=== PATIENT | male | born 1955 | race African-American/Black ===

== ENCOUNTER 2019-06-05 22:28 | Emergency (ER) | payer MEDICAID ==
[~2019-06-05] VITALS: Ht 175.3 cm; Wt 77.1 kg
[~2019-06-05 22:28] MED LIST: ROBAXIN500 MG PO; UNOBMED; ZITHROMAX250 MG ORAL
--- NOTE | 2019-06-05 22:32 | NUR ---
ED Nurse Note: Walk-in patient with complaints of dizziness, acute onset about 45 minutes ago. Patient reports feeling different, like a puppet. Patient is rambling and had unsteady gait upon arrival and help in to bed. panel monitor placed on patient. Blood drawn and blood specimen collected and sent to lab. Patient has pending void for urine sample. Will continue to monitor for specimen collection and lab results. IV N/S 1L hung and running, right AC 20G, patent and intact.
[2019-06-05 22:36] VITALS: BP 167/90
[2019-06-05 23:00] VITALS: BP 157/79
[2019-06-05 23:12] LABS: BASOPHILS % (AUTO) 0.7 % (0.0-2.0); EOSINOPHILS % (AUTO) 2.6 % (0.0-3.0); HEMATOCRIT 38.4 % (42.0-52.0); HEMOGLOBIN 13.6 G/DL (14.2-18.0); LYMPHOCYTES % (AUTO) 24.7 % (20.0-45.0); MEAN CORPUSCULAR VOLUME 89 FL (80-99); MONOCYTES % (AUTO) 7.9 % (1.0-10.0); NEUTROPHILS % (AUTO) 64.1 % (45.0-75.0); PLATELET COUNT 292 K/UL (150-450); RED CELL DISTRIBUTION WIDTH 11.5 % (11.6-14.8); WHITE BLOOD COUNT 10.3 K/UL (4.8-10.8)
[2019-06-05 23:22] LABS: ANION GAP 11 mmol/L (5-15); BLOOD UREA NITROGEN 29 mg/dL (7-18); CALCIUM 9.6 MG/DL (8.5-10.1); CARBON DIOXIDE 29 MMOL/L (21-32); CHLORIDE 107 MMOL/L (98-107); CREATININE 1.5 MG/DL (0.55-1.30); SODIUM 147 MMOL/L (136-145)
[2019-06-05 23:27] LABS: ALANINE AMINOTRANSFERASE 31 U/L (12-78); ALBUMIN 3.9 G/DL (3.4-5.0); ALBUMIN/GLOBULIN RATIO 0.9 (1.0-2.7); ALKALINE PHOSPHATASE 111 U/L (46-116); ASPARTATE AMINO TRANSFERASE 20 U/L (15-37); BILIRUBIN,TOTAL 0.4 MG/DL (0.2-1.0)
[2019-06-05 23:30] VITALS: BP 151/75
[2019-06-05 23:46] LABS: APPEARANCE,URINE CLEAR; BILIRUBIN, URINE NEGATIVE (NEGATIVE); COLOR,URINE PALE YELLOW; GLUCOSE, URINE (UA) NEGATIVE (NEGATIVE); KETONES,URINE NEGATIVE (NEGATIVE); LEUKOCYTE ESTERASE ,URINE NEGATIVE (NEGATIVE); NITRITE,URINE NEGATIVE (NEGATIVE); PH,URINE 5 (4.5-8.0); UROBILINOGEN,URINE NORMAL MG/DL (0.0-1.0)
[2019-06-06] VITALS: BP 134/76
--- NOTE | 2019-06-06 00:01 | Emergency Room Report ---
History of Present Illness General Chief Complaint: Generalized Weakness Source: Patient Present Illness HPI This 64-year-old male presents the ED for evaluation. Complaining of dizziness and feeling weak. Symptoms started tonight around 7 PM. Denies LOC. Denies chest pain or shortness of breath. Denies slurred speech or facial droop. Denies arm or leg weakness for the last several weeks he has had a runny nose and congestion. Denies fevers or chills. No other aggravating relieving factors. Denies any other associated symptoms Allergies: Coded Allergies: TRAMADOL (Verified Adverse Reaction, Severe, vomiting, 09/12/12) COVID-19 Screening Contact w/high risk pt: No Recent Travel to affected area: No Experienced COVID-19 symptoms?: No Patient History Past Medical History: DM, HTN, COPD Past Surgical History: none Pertinent Family History: none Social History: Denies: smoking, alcohol use, drug use Immunizations: UTD Reviewed Nursing Documentation: PMH: Agreed; PSxH: Agreed Nursing Documentation-PMH Hx Hypertension: Yes Hx Pacemaker: No Hx Asthma: No Hx COPD: Yes Hx Diabetes: Yes Hx Gastrointestinal Problems: Yes - constipation Hx Dialysis: No Hx Neurological Problems: No Hx Cerebrovascular Accident: No Review of Systems All Other Systems: negative except mentioned in HPI Physical Exam Vital Signs Date Time Temp Pulse Resp B/P (MAP) Pulse Ox O2 Delivery O2 Flow Rate FiO2 06/05/19 22:32 98.1 88 18 167/90 (115) 95 Room Air Sp02 EP Interpretation: reviewed, normal General Appearance: no apparent distress, alert, GCS 15, non-toxic Head: normocephalic, atraumatic Eyes: bilateral eye normal inspection, bilateral eye PERRL ENT: hearing grossly normal, normal pharynx, no angioedema, normal voice Neck: full range of motion, supple/symm/no masses Respiratory: chest non-tender, lungs clear, normal breath sounds, speaking full sentences Cardiovascular #1: regular rate, rhythm, no edema Cardiovascular #2: 2+ carotid (R), 2+ carotid (L), 2+ radial (R), 2+ radial (L) , 2+ dorsalis pedis (R), 2+ dorsalis pedis (L) Gastrointestinal: normal bowel sounds, non tender, soft, non-distended, no guarding, no rebound Rectal: deferred Genitourinary: normal inspection, no CVA tenderness Musculoskeletal: back normal, normal range of motion, gait/station normal, non- tender Neurologic: alert, motor strength/tone normal, 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 Differential diagnoses include: dehydration, arrythmia, EtOH, drug abuse Clinical course patient placed on stretcher. On electric range preparer. After initial history and physical ordered labs, IV fluids, EKG, CXR Labs reviewed- Na 147, Cr 1.5, no leukocytosis, hemoglobin/hematocrit stable, tox panel + for multilple substances EKG - NSR, no acute ischemic changes interpreted by me CXR - no acute process Patient allowed to rest. Observed on electric range preparer with stable vitals. Is more alert and oriented. Discussed findings with patient. Will discharge home. Safe for discharge for close outpatient follow-up i. I feel this is a highly complex case requiring extensive working including EKG/Rhythm strip, Xray/CT/US, Blood/urine lab work, repeat exams while in ED, and administration of strong opiates/narcotics for pain control, admission to hospital or close patient follow up. Diagnosis -episode of generalized weakness, substance abuse Stable and discharged to home. Followup with PMD. Return to ED if symptoms recur or worsen Labs Test 06/05/19 22:54 06/05/19 23:25 White Blood Count 10.3 K/UL (4.8-10.8) Red Blood Count 4.30 M/UL (4.70-6.10) Hemoglobin 13.6 G/DL (14.2-18.0) Hematocrit 38.4 % (42.0-52.0) Mean Corpuscular Volume 89 FL (80-99) Mean Corpuscular Hemoglobin 31.7 PG (27.0-31.0) Mean Corpuscular Hemoglobin Concent 35.5 G/DL (32.0-36.0) Red Cell Distribution Width 11.5 % (11.6-14.8) Platelet Count 292 K/UL (150-450) Mean Platelet Volume 7.0 FL (6.5-10.1) Neutrophils (%) (Auto) 64.1 % (45.0-75.0) Lymphocytes (%) (Auto) 24.7 % (20.0-45.0) Monocytes (%) (Auto) 7.9 % (1.0-10.0) Eosinophils (%) (Auto) 2.6 % (0.0-3.0) Basophils (%) (Auto) 0.7 % (0.0-2.0) Sodium Level 147 MMOL/L (136-145) Potassium Level 4.0 MMOL/L (3.5-5.1) Chloride Level 107 MMOL/L (98-107) Carbon Dioxide Level 29 MMOL/L (21-32) Anion Gap 11 mmol/L (5-15) Blood Urea Nitrogen 29 mg/dL (7-18) Creatinine 1.5 MG/DL (0.55-1.30) Estimat Glomerular Filtration Rate 57.4 mL/min (>60) Glucose Level 85 MG/DL (74-106) Calcium Level 9.6 MG/DL (8.5-10.1) Total Bilirubin 0.4 MG/DL (0.2-1.0) Aspartate Amino Transf (AST/SGOT) 20 U/L (15-37) Alanine Aminotransferase (ALT/SGPT) 31 U/L (12-78) Alkaline Phosphatase 111 U/L (46-116) Troponin I 0.002 ng/mL (0.000-0.056) Total Protein 8.2 G/DL (6.4-8.2) Albumin 3.9 G/DL (3.4-5.0) Globulin 4.3 g/dL Albumin/Globulin Ratio 0.9 (1.0-2.7) Serum Alcohol < 3 mg/dL Urine Color Pale yellow Urine Appearance Clear Urine pH 5 (4.5-8.0) Urine Specific [place] 1.020 (1.005-1.035) Urine Protein Negative (NEGATIVE) Urine Glucose (UA) Negative (NEGATIVE) Urine Ketones Negative (NEGATIVE) Urine Blood Negative (NEGATIVE) Urine Nitrite Negative (NEGATIVE) Urine Bilirubin Negative (NEGATIVE) Urine Urobilinogen Normal MG/DL (0.0-1.0) Urine Leukocyte Esterase Negative (NEGATIVE) Urine Opiates Screen Negative (NEGATIVE) Urine Barbiturates Screen Negative (NEGATIVE) Phencyclidine (PCP) Screen Positive (NEGATIVE) Urine Amphetamines Screen Negative (NEGATIVE) Urine Benzodiazepines Screen Negative (NEGATIVE) Urine Cocaine Screen Negative (NEGATIVE) Urine Marijuana (THC) Screen Positive (NEGATIVE) EKG Diagnostic Results Rate: normal Rhythm: NSR ST Segments: other ASA given to the pt in ED: No Rhythm Strip Diag. Results EP Interpretation: yes Rhythm: NSR, no PVC's, no ectopy Chest X-Ray Diagnostic Results Chest X-Ray Diagnostic Results : Chest X-Ray Ordered: Yes # of Views/Limited/Complete: 1 View Indication: Other EP Interpretation: Yes Interpretation: no consolidation, no effusion, no pneumothorax, no acute cardiopulmonary disease Impression: No acute disease Electronically Signed by: Electronically signed by Perry Diaz MD Last Vital Signs Date Time Temp Pulse Resp B/P (MAP) Pulse Ox O2 Delivery O2 Flow Rate FiO2 06/05/19 22:36 98.1 88 18 167/90 95 Room Air Status: improved Disposition: HOME, SELF-CARE Condition: Stable Referrals: NON PHYSICIAN (PCP) Perry Diaz MD Jun 06, 2019 00:01
--- NOTE | 2019-06-06 00:03 | Diagnostic Imaging Report ---
EXAM: XR Chest, 1 View CLINICAL HISTORY: COUGH TECHNIQUE: Frontal view of the chest. COMPARISON: 09/22/13 FINDINGS: Borderline to mild cardiomegaly. The lungs are mildly hypoinflated with vascular crowding. Negative for focal parenchymal consolidation, pneumothorax or fluid collections. Left lateral mid thorax rib deformities likely chronic.
[2019-06-06 00:10] LABS: PROTEIN,URINE NEGATIVE (NEGATIVE)
[2019-06-06 00:54] VITALS: BP 134/76
--- NOTE | 2019-06-06 00:54 | NUR ---
ER DISCHARGE NOTE: Patient is cleared to be discharged per ERMD, pt is aox4, on room air, with stable vital signs. patient was given dc and prescription instructions, patient was able to verbalize understanding, patient id band and iv site removed without complications. patient is able to ambulate with unsteady gait and minial assist. patient took all belongings and is accompanied by a family member to his place of residence.
== END 2019-06-06 00:56 | disposition home or self-care (01) ==
LOC: EMR 23:08
DX: R53.1 Weakness (principal); F19.10 Other psychoactive substance abuse, uncomplicated; Z88.8 Allergy status to other drugs, medicaments and biological substances; E11.9 Type 2 diabetes mellitus without complications; I10 Essential (primary) hypertension; J44.9 Chronic obstructive pulmonary disease, unspecified
CPT/HCPCS: 36415; 71045; 80053; 80307; 81003; 84484; 85025; 93005; 96360; G0480; J7030; Z7502; 99284

== ENCOUNTER 2019-07-27 16:00 | Emergency (ER) | payer MEDICAID ==
[~2019-07-27] VITALS: Ht 172.7 cm; Wt 79.4 kg
--- NOTE | 2019-07-27 16:35 | Emergency Room Report ---
History of Present Illness General Chief Complaint: hip pain Present Illness HPI Is a 64-year-old male who presents after increased right-sided hip pain. Reports having a longstanding prior problem with the right hip. No recent trauma. Increased clicking with ambulation. Denies any other locations of pain at this time. Patient denies any fever. Prior history of diabetes type 2. States that he has neuropathy. Allergies: Coded Allergies: TRAMADOL (Verified Adverse Reaction, Severe, vomiting, 09/12/12) COVID-19 Screening Contact w/high risk pt: No Recent Travel to affected area: No Experienced COVID-19 symptoms?: No Patient History Reviewed Nursing Documentation: PMH: Agreed; PSxH: Agreed Nursing Documentation-PMH Hx Hypertension: Yes Hx Pacemaker: No Hx Asthma: No Hx COPD: Yes Hx Diabetes: Yes Hx Gastrointestinal Problems: Yes - constipation Hx Dialysis: No Hx Neurological Problems: No Hx Cerebrovascular Accident: No Review of Systems All Other Systems: negative except mentioned in HPI Physical Exam General Appearance: well appearing, no apparent distress, alert, GCS 15 Head: normocephalic, atraumatic ENT: hearing grossly normal, normal voice Neck: full range of motion, supple Respiratory: lungs clear, no respiratory distress, speaking full sentences Cardiovascular #1: normal inspection, regular rate, rhythm Gastrointestinal: normal inspection, non tender Musculoskeletal: no calf tenderness Neurologic: alert, motor strength/tone normal, 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 Differential diagnosis include was not limited to arthritis, avascular necrosis, fracture, among others. X-ray imaging was ordered to patient's complaint of pain. Patient's problem does appear to be somewhat chronic and this does appear to be arthritic related. Patient states he is taken Tylenol with codeine for this problem in the past. Does not appear to require a narcotic pain medications. He does appear to be able to ambulate with a cane. He was advised to follow-up with primary care physician for recheck. Is advised to return if worse. Status: improved Disposition: HOME, SELF-CARE Condition: Stable Scripts Gabapentin* (NEURONTIN*) 400 Mg Capsule 400 MG ORAL THREE TIMES A DAY, #15 CAP 0 Refills Prov: Saul Alan MD 07/27/19 Saul Alan MD Jul 27, 2019 16:35
[2019-07-27 16:36] VITALS: BP 166/87
--- NOTE | 2019-07-27 16:36 | NUR ---
ED Nurse Note: Patient walked in to ED c/o right hip pain x 1 week. Denies recent fall/ injury. Reports pain while ambulating. Stated he has been taking pain medication but no relief. Not in any distress. Afebrile. STEPH paiz bedside.
[2019-07-27] MEDS ORDERED: Ketorolac 60mg Inj IM ONE (16:45)
--- NOTE | 2019-07-27 16:57 | NUR ---
ED Nurse Note: Xray at bedside.
[2019-07-27] MEDS ORDERED: NEURONTIN400 MG ORAL (17:20)
[2019-07-27 17:49] VITALS: BP 145/77
--- NOTE | 2019-07-27 17:49 | NUR ---
ED Nurse Note: Pt cleared by ERMD for discharge. DC instructions/prescription was given and explained to pt and verbalized understanding of teachings. All medical deviecs such as ID band removed. Pt is AAO x4, ambulatory and left with all personal belongings.
--- NOTE | 2019-07-27 18:13 | Diagnostic Imaging Report ---
EXAM: XR Right Hip With Pelvis When Performed, 2 or 3 Views CLINICAL HISTORY: PAIN TECHNIQUE: Two or three views of the right hip with pelvis when performed. COMPARISON: Pelvis CT on 09/12/2012 FINDINGS: Bones/joints: Degenerative changes of the hips. No definite displaced fracture identified. Osteopenia. Degenerative changes of the visualized lower lumbar spine. Soft tissues: Normal. IMPRESSION: No definite displaced fracture identified. Contours of the proximal femurs is likely secondary to degenerative changes, but further evaluation could be performed with CT or MRI if clinically indicated.
== END 2019-07-27 17:49 | disposition home or self-care (01) ==
LOC: EMR 16:31
DX: M25.551 Pain in right hip (principal); I10 Essential (primary) hypertension; J44.9 Chronic obstructive pulmonary disease, unspecified; E11.9 Type 2 diabetes mellitus without complications; Z88.8 Allergy status to other drugs, medicaments and biological substances; E11.40 Type 2 diabetes mellitus with diabetic neuropathy, unspecified
CPT/HCPCS: 73501; 96372; Z7502; 99283

== ENCOUNTER 2019-08-01 07:26 | Inpatient (IN) | payer MEDICAID ==
[~2019-08-01] VITALS: Ht 175.3 cm; Wt 85.3 kg
[~2019-08-01 07:26] MED LIST changes: +NEURONTIN400 MG ORAL
[2019-08-01 07:46] VITALS: BP 124/85
--- NOTE | 2019-08-01 07:52 | Emergency Room Report ---
History of Present Illness General Chief Complaint: Stroke Symptoms Source: Patient Present Illness HPI Disclaimer: Please note that this report is being documented using [employer] technology. This can lead to erroneous entry secondary to incorrect interpretation by the dictating instrument. HPI: 64-year-old male presents with left-sided weakness. He states he has had left-sided weakness for the past 2 days. He has a history of hypertension diabetes and stroke. He reports left upper and lower extremity weakness and difficulty ambulating. Denies any fevers cough nausea vomiting chest pain or shortness of breath. He normally walks with a cane. PMH: Hypertension, diabetes, stroke PSH: Reviewed Social Hx: Patient denies smoking drinking or illicit drug use Allergies: Coded Allergies: TRAMADOL (Verified Adverse Reaction, Severe, vomiting, 09/12/12) COVID-19 Screening Contact w/high risk pt: No Recent Travel to affected area: No Experienced COVID-19 symptoms?: No COVID-19 Testing performed SHOE COBBLER: No Patient History Reviewed Nursing Documentation: PMH: Agreed; PSxH: Agreed Nursing Documentation-PMH Past Medical History: No History, Except For Hx Hypertension: Yes Hx Pacemaker: No Hx Asthma: No Hx COPD: Yes Hx Diabetes: Yes Hx Gastrointestinal Problems: Yes - constipation Hx Dialysis: No Hx Neurological Problems: No Hx Cerebrovascular Accident: Yes Review of Systems All Other Systems: negative except mentioned in HPI Physical Exam Vital Signs Date Time Temp Pulse Resp B/P (MAP) Pulse Ox O2 Delivery O2 Flow Rate FiO2 08/01/19 07:30 98.2 87 16 124/85 (98) 95 Room Air Sp02 EP Interpretation: reviewed, normal General Appearance: well appearing, no apparent distress Head: normocephalic, atraumatic Eyes: bilateral eye PERRL, bilateral eye EOMI ENT: hearing grossly normal, moist mucus membranes Neck: full range of motion, supple Respiratory: lungs clear, normal breath sounds, no rhonchi, no respiratory distress, no retraction, no wheezing Cardiovascular #1: normal peripheral pulses, regular rate, rhythm, no murmur Gastrointestinal: non tender, soft, non-distended, no guarding Neurologic: alert, chicken catcher III-XII nml as tested, oriented x3, sensory intact, no focal defects, other - Right upper and lower extremity motor strength normal, left upper extremity strength 4- out of 5, left lower extremity 3 out of 5, Skin: normal color, warm/dry Medical Decision Making Diagnostic Impression: Primary Impression: Stroke-like symptoms Additional Impression: Polysubstance abuse ER Course MDM: Patient presents with left upper and lower extremity weakness. Franny diagnosis included but not limited to stroke, intracranial hemorrhage, arthritis , to name a few Clinical course-IV inserted, cardiac monitoring pulse oximetry, EKG completed. Patient did present outside the interventional window. CT scan of the brain showed no evidence of acute intracranial hemorrhage or acute infarct. Urine drug screen was positive for PCP. Patient did have left-sided weakness on exam. He was a poor historian and it was unclear if these were worsening old symptoms or new symptoms. But he did state he had been unable to ambulate. Due to his risk factors, exam with left-sided weakness will admit for further work-up. Case discussed with hospitalist on-call Dr. Mosley Labs - Laboratory Tests Test 08/01/19 07:35 08/01/19 09:30 White Blood Count 8.1 K/UL (4.8-10.8) Red Blood Count 4.30 M/UL (4.70-6.10) L Hemoglobin 13.3 G/DL (14.2-18.0) L Hematocrit 38.4 % (42.0-52.0) L Mean Corpuscular Volume 89 FL (80-99) Mean Corpuscular Hemoglobin 30.9 PG (27.0-31.0) Mean Corpuscular Hemoglobin Concent 34.6 G/DL (32.0-36.0) Red Cell Distribution Width 11.7 % (11.6-14.8) Platelet Count 235 K/UL (150-450) Mean Platelet Volume 7.0 FL (6.5-10.1) Neutrophils (%) (Auto) 60.8 % (45.0-75.0) Lymphocytes (%) (Auto) 26.3 % (20.0-45.0) Monocytes (%) (Auto) 8.4 % (1.0-10.0) Eosinophils (%) (Auto) 3.4 % (0.0-3.0) H Basophils (%) (Auto) 1.1 % (0.0-2.0) Prothrombin Time 10.9 SEC (9.30-11.50) Prothrombin Time INR 1.0 (0.9-1.1) Activated Partial Thromboplast Time 27 SEC (23-33) Sodium Level 143 MMOL/L (136-145) Potassium Level 3.7 MMOL/L (3.5-5.1) Chloride Level 107 MMOL/L (98-107) Carbon Dioxide Level 26 MMOL/L (21-32) Anion Gap 10 mmol/L (5-15) Blood Urea Nitrogen 30 mg/dL (7-18) H Creatinine 1.6 MG/DL (0.55-1.30) H Estimated Glomerular Filtration Rate 53.3 mL/min (>60) Glucose Level 93 MG/DL (74-106) Calcium Level 8.9 MG/DL (8.5-10.1) Total Bilirubin 0.8 MG/DL (0.2-1.0) Aspartate Amino Transferase (AST) 14 U/L (15-37) L Alanine Aminotransferase (ALT) 29 U/L (12-78) Alkaline Phosphatase 100 U/L (46-116) Troponin I 0.000 ng/mL (0.000-0.056) Total Protein 7.5 G/DL (6.4-8.2) Albumin 3.7 G/DL (3.4-5.0) Globulin 3.8 g/dL Albumin/Globulin Ratio 1.0 (1.0-2.7) Urine Opiates Screen Negative (NEGATIVE) Urine Barbiturates Screen Negative (NEGATIVE) Phencyclidine (PCP) Screen Positive (NEGATIVE) H Urine Amphetamines Screen Negative (NEGATIVE) Urine Benzodiazepines Screen Negative (NEGATIVE) Urine Cocaine Screen Negative (NEGATIVE) Urine Marijuana (THC) Screen Positive (NEGATIVE) H On reevaluation: Patient resting comfortably, Plan-admission to the telemetry floor EKG Diagnostic Results Rate: normal Rhythm: NSR ST Segments: no acute changes ASA given to the pt in ED: Yes Rhythm Strip Diag. Results EP Interpretation: yes Rate: 70 Rhythm: NSR, no PVC's, no ectopy Chest X-Ray Diagnostic Results Chest X-Ray Diagnostic Results : Chest X-Ray Ordered: Yes # of Views/Limited/Complete: 1 View EP Interpretation: Yes Interpretation: no consolidation, no effusion, no pneumothorax Impression: No acute disease Electronically Signed by: Bo Vallejo MD Last Vital Signs Date Time Temp Pulse Resp B/P (MAP) Pulse Ox O2 Delivery O2 Flow Rate FiO2 08/01/19 07:30 98.2 87 16 124/85 (98 95 Room Air Disposition: ADMITTED INPATIENT Condition: Serious Bo Vallejo M.D. Aug 01, 2019 07:52
[2019-08-01 08:09] LABS: BASOPHILS % (AUTO) 1.1 % (0.0-2.0); EOSINOPHILS % (AUTO) 3.4 % (0.0-3.0); HEMATOCRIT 38.4 % (42.0-52.0); HEMOGLOBIN 13.3 G/DL (14.2-18.0); LYMPHOCYTES % (AUTO) 26.3 % (20.0-45.0); MEAN CORPUSCULAR VOLUME 89 FL (80-99); MONOCYTES % (AUTO) 8.4 % (1.0-10.0); NEUTROPHILS % (AUTO) 60.8 % (45.0-75.0); PLATELET COUNT 235 K/UL (150-450); RED CELL DISTRIBUTION WIDTH 11.7 % (11.6-14.8); WHITE BLOOD COUNT 8.1 K/UL (4.8-10.8)
[2019-08-01 08:14] LABS: ANION GAP 10 mmol/L (5-15); BLOOD UREA NITROGEN 30 mg/dL (7-18); CALCIUM 8.9 MG/DL (8.5-10.1); CARBON DIOXIDE 26 MMOL/L (21-32); CHLORIDE 107 MMOL/L (98-107); CREATININE 1.6 MG/DL (0.55-1.30); POTASSIUM 3.7 MMOL/L (3.5-5.1); SODIUM 143 MMOL/L (136-145)
[2019-08-01 08:24] LABS: ALANINE AMINOTRANSFERASE 29 U/L (12-78); ALBUMIN 3.7 G/DL (3.4-5.0); ALKALINE PHOSPHATASE 100 U/L (46-116); ASPARTATE AMINO TRANSFERASE 14 U/L (15-37); BILIRUBIN,TOTAL 0.8 MG/DL (0.2-1.0)
--- NOTE | 2019-08-01 08:41 | Diagnostic Imaging Report ---
Indications: Left-sided weakness Technique: Spiral acquisitions obtained through the brain. Angled axial and coronal 5 x 5 mm slices were reconstructed. Total dose length product 1098 mGycm. CTDI vol(s) 53 mGy. Dose reduction achieved using automated exposure control Comparison: None. Findings: No acute intracranial hemorrhage or edema. No mass effect nor midline shift. Normal size ventricles and extra-axial CSF spaces. Normal harden-white differentiation. Intact calvarium. Visualized orbits and sinuses are unremarkable. Impression: Negative The CT scanner at [facility] is accredited by the [employer] and the scans are performed using protocols designed to limit radiation exposure to as low as reasonably achievable to attain images of sufficient resolution adequate for diagnostic evaluation.
[2019-08-01] MEDS ORDERED: Aspirin Baby 81mg ORAL ONE (08:45)
[2019-08-01] MEDS ORDERED: Naloxone 1mg/ml 2ml ONE (08:55)
[2019-08-01] MEDS ORDERED: Naloxone 1mg/ml 2ml IVP ONE (09:00)
[2019-08-01 09:20] VITALS: BP 120/77
--- NOTE | 2019-08-01 10:10 | Diagnostic Imaging Report ---
Indication: Shortness of breath Technique: One view of the chest Comparison: 06/05/2019 Findings: Multiple the left rib fracture deformities are again demonstrated. The lungs and pleural spaces are clear. The heart size is normal. The aorta is somewhat tortuous. Impression: No acute process
[2019-08-01] MEDS: HYDROcodone/Acetamin 5/325 tab ORAL PRN (14:00)
--- NOTE | 2019-08-01 14:48 | History and Physical ---
Larissa Sy EFFICIENCY ANALYST 08/01/19 1448: History of Present Illness General Date patient seen: Aug 01, 2019 Time patient seen: 14:00 Reason for Hospitalization: Stroke Symptoms Present Illness HPI 65 years old male with past medical history of hypertension, hypercholesterolemia, COPD, diabetes mellitus, history of CVA, presented with left-sided weakness for the last 2 to 3 days. Patient reported left upper and lower extremity weakness and difficulty with ambulation. Patient at baseline ambulates with cane. No chest pain, no shortness of breath. He denies fever or chills. He denied cough,, congestion respiratory distress. No nausea or vomiting. Upon evaluation in emergency room CT of the head revealed no acute intracranial hemorrhage or edema , no mass-effect. Chest x-ray demonstrated no acute cardiopulmonary pathology. Laboratory work-up revealed no leukocytosis ,stable hemoglobin ,hematocrit. BUN 30, creatinine 1.6. Troponin negative. EKG revealed sinus rhythm , no acute ischemic changes. Urine toxicology screen was positive for phencyclidine and marijuana. In emergency department patient received aspirin , Narcan and admitted for further management. Upon further questioning why he did not come when he first started to experience symptoms, patient admitted to being homeless . Allergies: Coded Allergies: TRAMADOL (Verified Adverse Reaction, Severe, vomiting, 09/12/12) COVID-19 Screening Contact w/high risk pt: No Recent Travel to affected area: No Experienced COVID-19 symptoms?: No Medication History Scheduled Azithromycin* (Zithromax*), 250 MG ORAL DAILY Gabapentin* (Neurontin*), 400 MG ORAL THREE TIMES A DAY Miscellaneous Medications Unable to Obtain Medications (Unable To Obtain Meds), (Reported) Patient History Healthcare decision maker Resuscitation status Full code Advanced Directive on File Past Medical/Surgical History Past Medical/Surgical History: (1) Substance abuse (2) Uncontrolled diabetes mellitus (3) Arthritis Review of Systems Constitutional: Reports: weakness Eye: Reports: no symptoms ENT: Reports: no symptoms Respiratory: Reports: other - asthma Cardiovascular: Reports: other - HTN, high cholesterol Gastrointestinal: Reports: no symptoms Genitourinary: Reports: no symptoms Musculoskeletal: Reports: see HPI Skin: Reports: no symptoms Psychiatric: Reports: no symptoms Neurological: Reports: see HPI, other Endocrine: Reports: other - DM Hematologic/Lymphatic: Reports: no symptoms Physical Exam General Appearance: WD/WN, no apparent distress, alert Lines, tubes and drains: peripheral HEENT: normocephalic, atraumatic, anicteric Neck: supple Respiratory/Chest: lungs clear, no respiratory distress, no accessory muscle use Cardiovascular/Chest: normal peripheral pulses, normal rate, regular rhythm Abdomen: normal bowel sounds, non tender, soft Extremities: no calf tenderness, normal capillary refill Neurologic: alert, oriented x 3, responsive, other - left sided weakness Musculoskeletal: normal muscle bulk Last 24 Hour Vital Signs Date Time Temp Pulse Resp B/P (MAP) Pulse Ox O2 Delivery O2 Flow Rate FiO2 08/01/19 12:11 Room Air 08/01/19 11:19 76 08/01/19 10:46 98.4 78 16 130/75 98 Room Air 08/01/19 09:20 98.5 73 16 120/77 98 Room Air 08/01/19 07:46 98.2 89 16 124/85 95 Room Air 08/01/19 07:30 98.2 87 16 124/85 (98) 95 Room Air Laboratory Tests Test 08/01/19 07:35 08/01/19 09:30 White Blood Count 8.1 K/UL (4.8-10.8) Red Blood Count 4.30 M/UL (4.70-6.10) L Hemoglobin 13.3 G/DL (14.2-18.0) L Hematocrit 38.4 % (42.0-52.0) L Mean Corpuscular Volume 89 FL (80-99) Mean Corpuscular Hemoglobin 30.9 PG (27.0-31.0) Mean Corpuscular Hemoglobin Concent 34.6 G/DL (32.0-36.0) Red Cell Distribution Width 11.7 % (11.6-14.8) Platelet Count 235 K/UL (150-450) Mean Platelet Volume 7.0 FL (6.5-10.1) Neutrophils (%) (Auto) 60.8 % (45.0-75.0) Lymphocytes (%) (Auto) 26.3 % (20.0-45.0) Monocytes (%) (Auto) 8.4 % (1.0-10.0) Eosinophils (%) (Auto) 3.4 % (0.0-3.0) H Basophils (%) (Auto) 1.1 % (0.0-2.0) Prothrombin Time 10.9 SEC (9.30-11.50) Prothromb Time International Ratio 1.0 (0.9-1.1) Activated Partial Thromboplast Time 27 SEC (23-33) Sodium Level 143 MMOL/L (136-145) Potassium Level 3.7 MMOL/L (3.5-5.1) Chloride Level 107 MMOL/L (98-107) Carbon Dioxide Level 26 MMOL/L (21-32) Anion Gap 10 mmol/L (5-15) Blood Urea Nitrogen 30 mg/dL (7-18) H Creatinine 1.6 MG/DL (0.55-1.30) H Estimat Glomerular Filtration Rate 53.3 mL/min (>60) Glucose Level 93 MG/DL (74-106) Calcium Level 8.9 MG/DL (8.5-10.1) Total Bilirubin 0.8 MG/DL (0.2-1.0) Aspartate Amino Transf (AST/SGOT) 14 U/L (15-37) L Alanine Aminotransferase (ALT/SGPT) 29 U/L (12-78) Alkaline Phosphatase 100 U/L (46-116) Troponin I 0.000 ng/mL (0.000-0.056) Total Protein 7.5 G/DL (6.4-8.2) Albumin 3.7 G/DL (3.4-5.0) Globulin 3.8 g/dL Albumin/Globulin Ratio 1.0 (1.0-2.7) Urine Opiates Screen Negative (NEGATIVE) Urine Barbiturates Screen Negative (NEGATIVE) Phencyclidine (PCP) Screen Positive (NEGATIVE) H Urine Amphetamines Screen Negative (NEGATIVE) Urine Benzodiazepines Screen Negative (NEGATIVE) Urine Cocaine Screen Negative (NEGATIVE) Urine Marijuana (THC) Screen Positive (NEGATIVE) H Height (Feet): 5 Height (Inches): 9.00 Weight (Pounds): 188 Medications Current Medications Medications (Trade) Dose Ordered Sig/Tdod Route PRN Reason Start Time Stop Time Status Last Admin Dose Admin Acetaminophen/ Hydrocodone Bitart ([place] 5/325) 1 tab Q6H PRN ORAL For Pain 08/01/19 13:42 08/08/19 13:41 08/01/19 14:00 Aspirin (ASA) 81 mg DAILY NG 08/02/19 09:00 09/16/19 08:59 Dextrose (Dextrose 50%) 25 ml Q30M PRN IV Hypoglycemia 08/01/19 13:42 10/30/19 13:41 Dextrose (Dextrose 50%) 50 ml Q30M PRN IV Hypoglycemia 08/01/19 13:42 10/30/19 13:41 Insulin Aspart (NovoLOG) BEFORE MEALS AND HS SUBQ 08/01/19 16:30 10/30/19 16:29 Assessment/Plan Assessment/Plan: ASSESSMENT left side weakness, r/o CVA VAZQUEZ vs CKD Substance abuse DM HTN COPD Hypercholesteremia ? prior hx of CVA ( no evidence of CY head) Homeless PLAN OF CARE tele MRI brain Carotid Duplex Neuro eval ASA lipid panel swallow eval PT eval and rx BS management with SSI, check HgA1c diabetic diet monitor BP closely,unknown home meds, at this time stable supplemental O2 prn to keep sat above 90% HHN with Duoneb prn DVT prophylaxis monitor renal paramerts, lytes, correct lytes as needed, avoid nephrotoxics, creat prior 1.5, also in the past hx of ARF with creat up to 2.8, likely CKD direct selling counselor on abstinence from illicit street drugs case discussed and evaluated by supervising physician Harjinder Mosley MD 08/01/191951: History of Present Illness General Reason for Hospitalization: Stroke Symptoms Present Illness Allergies: Coded Allergies: TRAMADOL (Verified Adverse Reaction, Severe, vomiting, 09/12/12) Medication History Scheduled Azithromycin* (Zithromax*), 250 MG ORAL DAILY Gabapentin* (Neurontin*), 400 MG ORAL THREE TIMES A DAY Miscellaneous Medications Unable to Obtain Medications (Unable To Obtain Meds), (Reported) Assessment/Plan Assessment/Plan: Patient seen and examined with EFFICIENCY ANALYST. Agree with above A&P as it reflects our joint deliberations. MRI brain and neuro w/u. Have asked for neuro eval and renal eval for VAZQUEZ vs CKD. Larissa Sy EFFICIENCY ANALYST Aug 01, 2019 14:48 Harjinder Mosley MD Aug 01, 2019 19:52
[2019-08-01] MEDS ORDERED: Gadavist 7.5mMol/7.5ml vial IV PRN ×2 (15:00→15:45)
[2019-08-01] MEDS ORDERED: Albuterol/Ipratropium 3ml neb HHN PRN (15:11)
[2019-08-01 16:00] VITALS: BP 152/84
[2019-08-01] MEDS: NovoLOG Insulin Flexpen SUBQ SCH ×2 (16:51→20:40)
[2019-08-01 20:00] VITALS: BP 149/78
[2019-08-01] MEDS ORDERED: NS w/KCl 20mEq 1000ml 1,000 ML IV SCH (22:00)
--- NOTE | 2019-08-01 23:45 | Consultation ---
DATE OF CONSULTATION: 08/01/2019 NEUROLOGIC CONSULTATION CONSULTING PHYSICIAN: Deion Bae MD HISTORY OF PRESENT ILLNESS: This 64-year-old right-handed man with a previous history of hypertension for "35 years," diabetes for many years, hyperlipidemia, possible stroke in the past and abuser of PCP. He was admitted with a chief complaint of left-sided weakness for the past few days. I was asked to see the patient because of the possibility of stroke. Patient is difficult to get a history out of. He does not know the date, does not know where he is at. However, he states in the last 2 to 3 days, he has had left-sided weakness and also noted a tremor on the left side, but also on the right side as well along with right leg weakness, which he says is "old." Patient denies any chest pain, palpitations, or shortness of breath. He has a gait disorder and generally walks with a cane. He denies any diplopia, dysarthria, dysphagia, hearing loss, or tinnitus. He has problems with balance. He has trouble seeing out of the right eye because of "cataract." He denies ever smoking cigarettes. He also denies alcohol abuse. He has no history of sexually transmitted disease. There is a questionable history of COPD, but he denies asthma. Patient's urinary screen was positive for PCP and THC and he has had in the past on 06/05/2019. His entering chemistries reveals BUN of 30 and creatinine of 1.6. The rest of the chemistries are pretty much normal. PT and PTT are normal. Hematology reveals mild normocytic anemia with normal white count and normal platelet count. EKG was normal. CT scan of the brain from today was negative. Chest x-ray reveals a tortuous aorta. Patient did have a spine CAT scan on 09/12/2012 in the lumbar spine. He had spinal stenosis, lateral recess stenosis at L4-L5 due to degenerative joint disease and probable central stenosis at L2-L3 and L3-L4. The MRI was recommended, but not done. The abdomen and pelvis CT scan was done on 02/05/2015 revealed distended urinary bladder and possible outlet obstruction. PAST MEDICAL HISTORY/PAST MEDICAL ILLNESSES: See above. ALLERGIES: He may be allergic to tramadol. HABITS: See above. FAMILY HISTORY: Unavailable. SOCIAL HISTORY: He is unemployed. SURGICAL HISTORY: None. REVIEW OF SYSTEMS: Does complain of significant visual loss in the right eye. PHYSICAL EXAMINATION: GENERAL: He is well developed, well nourished, little overweight man, lying in bed. VITAL SIGNS: Temperature is 98.4 degrees, blood pressure 130/75, pulse oximetry is 98 on room air, pulse is 76, regular. HEENT: Reveals bilateral arcus senilis. Poor dentition. NECK: His neck is supple. Carotids +2. No bruits appreciated. LUNGS: Decreased breath sounds. CARDIOVASCULAR: Heart tones are decreased. No obvious murmurs, rubs, or clicks. ABDOMEN: Obese. Bowel sounds intact. No tenderness, masses, or organomegaly. EXTREMITIES: There is no edema. in the extremities. NEUROLOGIC EXAMINATION: MENTAL STATUS: Patient is alert and awake. Judgment could not be tested. Affect is probably appropriate to his mood. Memory, his past memory is intact to his birthday, 1955. Immediate recall is 3/3 objects. Recent recall 0/3 objects at 3 minutes. Intellect, similarities could not be done. Orientation to date, even though the year thinking it was [address], he does not know where he was, did not know this place is a hospital. Person, he is oriented to his name. CRANIAL NERVE EXAMINATION: CRANIAL NERVE II: Visual field O.D. could not be tested. Visual field O.S. probably normal. CRANIAL NERVES III, IV, AND : Extraocular motility was full. Pupils were approximately 3.5 mm to 4 mm round, sluggishly reactive. CRANIAL NERVE V: Facial and corneal sensations were intact to fine touch. CRANIAL NERVE VII: Facial strength was 5/5. CRANIAL NERVE VIII: Auditory acuity was intact at least for a loud whisper at 14 inches. CRANIAL NERVES IX AND X: Not tested. CRANIAL NERVES XI AND XII: Intact. MUSCLE EXAMINATION: Muscle bulk is symmetrical. Tone is normal. Decreased strength of 4/5 in the left upper extremity and 4+/5 in the right upper extremity, 4/5 in the lower extremities, possibly weaker on the left. The patient has about a 3 to 4 cycle per second tremor in the left upper extremity, right lower extremity, and some in the right upper extremity. REFLEXES: Were 0 in the upper extremities and downgoing toes and testing for Babinski response. COORDINATION: [id number] was intact except for the left upper extremity. [id number] testing was done. GAIT AND STATION: Not tested. SENSORY EXAMINATION: He had decreased fine touch in his feet and decreased pinprick in the feet. The rest of the sensory exam could not be tested. 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 It is hard to tell if the patient has had a stroke. The patient is tremulous in the extremities, the cause of the tremor is unknown, possibly central tremor. Interestingly enough that his stroke was over the last few days. His CT scan is "negative." In fact, it is hard to tell whether or not this patient actually had a stroke. His chemistries are pretty much unremarkable. In fact, his blood sugars were normal. He does have some mild renal insufficiency more history in this patient. The patient has been to the emergency room previously. He has renal insufficiency goes back to 2013; however, his renal insufficiency abnormality cannot explain his altered mental status. The patient will need workout. MRI scan of the brain should be obtained as well as MRA of the brain and MRA of the neck with gadolinium. Other studies will be obtained. The PCP could be causing some altered mental status; however, he is not particularly agitated. Marijuana generally causes drowsiness, but not this much confusion. PLAN: 1. Aspirin 325 mg a day. 2. MRI/MRA of the brain and MRA of the neck. 3. Sedimentation rate and C-reactive protein. 4. RPR and FTA. 5. TSH, thyroid functions. 6. B12 level and calcium level. 7. Consider EEG. Thank you for this interesting case. Deion Bae MD DR: Kandis JOB#: [id number] CC:
[2019-08-02] VITALS: BP 146/79
[2019-08-02 04:00] VITALS: BP 175/94
[2019-08-02] MEDS: NovoLOG Insulin Flexpen SUBQ SCH ×4 (05:36→22:17)
[2019-08-02 08:00] VITALS: BP 176/89
[2019-08-02 08:17] LABS: BASOPHILS % (AUTO) 0.9 % (0.0-2.0); EOSINOPHILS % (AUTO) 3.1 % (0.0-3.0); HEMATOCRIT 40.6 % (42.0-52.0); HEMOGLOBIN 13.8 G/DL (14.2-18.0); MEAN CORPUSCULAR VOLUME 90 FL (80-99); MONOCYTES % (AUTO) 6.8 % (1.0-10.0); NEUTROPHILS % (AUTO) 56.1 % (45.0-75.0); PLATELET COUNT 239 K/UL (150-450); RED BLOOD COUNT 4.51 M/UL (4.70-6.10); RED CELL DISTRIBUTION WIDTH 11.7 % (11.6-14.8); WHITE BLOOD COUNT 7.3 K/UL (4.8-10.8)
[2019-08-02] MEDS: Milk of Magnesia 30ml Ud ORAL PRN (08:24)
[2019-08-02] MEDS: Aspirin Baby 81mg NG SCH (08:25)
[2019-08-02] MEDS: Enoxaparin 40mg Inj SUBQ SCH (08:26)
[2019-08-02 09:02] LABS: ANION GAP 6 mmol/L (5-15); BLOOD UREA NITROGEN 25 mg/dL (7-18); CALCIUM 8.8 MG/DL (8.5-10.1); CARBON DIOXIDE 31 MMOL/L (21-32); CHLORIDE 108 MMOL/L (98-107); CHOLESTEROL 210 MG/DL (< 200); CREATINE KINASE 200 U/L (26-308); CREATININE 1.3 MG/DL (0.55-1.30); HDL CHOLESTEROL 56 MG/DL (40-60); POTASSIUM 4.6 MMOL/L (3.5-5.1); SODIUM 145 MMOL/L (136-145); TRIGLYCERIDES 72 MG/DL (30-150)
[2019-08-02] MEDS ORDERED: LORazepam Inj 2mg/ml 1ml IV SCH (10:30)
--- NOTE | 2019-08-02 11:01 | Pulmonology Progress Note ---
Larissa Sy INFORMATION TECHNOLOGY TECHNICIAN 08/02/19 1101: Subjective Allergies: Coded Allergies: TRAMADOL (Verified Adverse Reaction, Severe, vomiting, 09/12/12) Subjective seen by neuro awaiting for MRI BP elevated 176/89 remains afebrile, no signs of resp distres no new weakness Objective Last 24 Hour Vital Signs Date Time Temp Pulse Resp B/P (MAP) Pulse Ox O2 Delivery O2 Flow Rate FiO2 08/02/19 08:24 86 176/89 08/02/19 08:00 98.7 86 20 176/89 (118) 98 08/02/19 08:00 84 08/02/19 04:00 97.9 85 20 175/94 (121) 100 08/02/19 04:00 82 08/02/19 00:00 78 08/02/19 00:00 97.3 79 18 146/79 (101) 95 08/01/19 21:00 Room Air 08/01/19 20:00 97.7 79 14 149/78 (101) 95 08/01/19 20:00 80 08/01/19 16:00 83 08/01/19 16:00 97.1 84 19 152/84 (106) 97 08/01/19 14:30 98.4 08/01/19 12:11 Room Air 08/01/19 11:19 76 Intake and Output 08/01/19 08/02/19 19:00 07:00 Intake Total 1000 ml Output Total 0 ml Balance 0 ml 1000 ml Intake Oral 600 ml IV Total 400 ml Output Urine Total 0 ml # Voids 1 2 Objective General Appearance: WD/WN, no apparent distress, alert Lines, tubes and drains: peripheral HEENT: normocephalic, atraumatic, anicteric Neck: supple Respiratory/Chest: lungs clear, no respiratory distress, no accessory muscle use Cardiovascular/Chest: normal peripheral pulses, normal rate, regular rhythm Abdomen: normal bowel sounds, non tender, soft Extremities: no calf tenderness, normal capillary refill Neurologic: alert, oriented x 3, responsive, left sided weakness and tremors Musculoskeletal: normal muscle bulk Laboratory Tests 08/01/19 17:30: Erythrocyte Sedimentation Rate 15, Ammonia 30, C-Reactive Protein, Quantitative 0.7, Vitamin B12 Level 1699H, Methylmalonic Acid [Pending], Thyroid Stimulating Hormone (TSH) 0.687, Rapid Plasma Reagin [Pending], Treponema pallidum Ab (FTA- ABS) [Pending] 08/02/19 07:55: White Blood Count 7.3, Red Blood Count 4.51L, Hemoglobin 13.8L, Hematocrit 40.6L , Mean Corpuscular Volume 90, Mean Corpuscular Hemoglobin 30.7, Mean Corpuscular Hemoglobin Concent 34.1, Red Cell Distribution Width 11.7, Platelet Count 239, Mean Platelet Volume 7.2, Neutrophils (%) (Auto) 56.1, Lymphocytes (% ) (Auto) 33.0, Monocytes (%) (Auto) 6.8, Eosinophils (%) (Auto) 3.1H, Basophils (%) (Auto) 0.9, Sodium Level 145, Potassium Level 4.6, Chloride Level 108H, Carbon Dioxide Level 31, Anion Gap 6, Blood Urea Nitrogen 25H, Creatinine 1.3, Estimat Glomerular Filtration Rate > 60, Glucose Level 98, Hemoglobin A1c 8.7H, Uric Acid 6.2, Calcium Level 8.8, Total Creatine Kinase 200, Triglycerides Level 72, Cholesterol Level 210H, LDL Cholesterol 132H, HDL Cholesterol 56, Cholesterol/HDL Ratio 3.8 Current Medications Medications (Trade) Dose Ordered Sig/Todd Route PRN Reason Start Time Stop Time Status Last Admin Dose Admin Acetaminophen/ Hydrocodone Bitart ([place] 5/325) 1 tab Q6H PRN ORAL For Pain 08/01/19 13:42 08/08/19 13:41 08/01/19 14:00 Albuterol/ Ipratropium (Albuterol/ Ipratropium) 3 ml Q4H PRN HHN Shortness of Breath 08/01/19 15:11 08/06/19 15:10 Amlodipine Besylate (Norvasc) 5 mg DAILY ORAL 08/02/19 09:00 09/01/19 08:59 08/02/19 08:24 Aspirin (ASA) 81 mg DAILY NG 08/02/19 09:00 09/16/19 08:59 08/02/19 08:25 Atorvastatin Calcium (Lipitor) 10 mg DAILY ORAL 08/02/19 09:00 10/31/19 08:59 08/02/19 08:24 Dextrose (Dextrose 50%) 25 ml Q30M PRN IV Hypoglycemia 08/01/19 13:42 10/30/19 13:41 Dextrose (Dextrose 50%) 50 ml Q30M PRN IV Hypoglycemia 08/01/19 13:42 10/30/19 13:41 Enoxaparin Sodium (Lovenox) 40 mg DAILY SUBQ 08/02/19 09:00 10/31/19 08:59 08/02/19 08:26 Gadobutrol (Gadavist) 7.5 mmol NOW PRN IV Radiology Procedure 08/01/19 15:00 08/05/19 14:59 Insulin Aspart (NovoLOG) BEFORE MEALS AND HS SUBQ 08/01/19 16:30 10/30/19 16:29 08/02/19 05:36 Lorazepam (Ativan 2mg/ml 1ml) 1 mg ONCE IV 08/02/19 10:30 08/02/19 11:30 08/02/19 10:52 Magnesium Hydroxide (Mom) 30 ml Q6H PRN ORAL Constipation 08/02/19 08:00 09/01/19 07:59 08/02/19 08:24 Potassium Chloride/Sodium Chloride 1,000 ml @ 50 mls/hr Q20H IV 08/01/19 22:00 08/31/19 21:59 08/01/19 22:28 Assessment/Plan Assessment/Plan ASSESSMENT left side weakness, r/o CVA VAZQUEZ vs CKD Substance abuse DM HTN with HTN urgency COPD Hypercholesteremia ? prior hx of CVA ( no evidence of CY head) Homeless PLAN OF CARE tele MRI brain pending Carotid Duplex Neuro eval appreciated ASA lipid panel with elevated TC and LDL, start statin swallow eval PT eval and Rx BS management with SSI, HgA1c 8.7, BS stable in the hospital diabetic diet and diabetic teaching monitor BP closely BP management with CCB and Clonidine prn just added for Bp spikes supplemental O2 prn to keep sat above 90% HHN with Duoneb prn DVT prophylaxis monitor renal paramerts, lytes, correct lytes as needed, avoid nephrotoxics, creat down to normal children's counselor on abstinence from illicit street drugs case discussed and evaluated by supervising physician Harjinder Mosley MD 08/02/197: Subjective Allergies: Coded Allergies: TRAMADOL (Verified Adverse Reaction, Severe, vomiting, 09/12/12) Assessment/Plan Assessment/Plan Patient seen and examined with INFORMATION TECHNOLOGY TECHNICIAN. Agree with above A&P as it reflects our joint deliberations. Larissa Sy NP Aug 02, 2019 11:01 Harjinder Mosley MD Aug 02, 2019 21:09
[2019-08-02 12:00] VITALS: BP 164/59
--- NOTE | 2019-08-02 13:00 | Diagnostic Imaging Report ---
Indication: Left-sided weakness Technique: Grayscale and duplex images of the bilateral extracranial carotid and vertebral arteries Comparison: none Findings: Bilaterally, grayscale and duplex images demonstrate atherosclerotic plaquing resulting in less than 50% diameter narrowing. Normal Doppler flow velocities and waveforms. Patent bilateral vertebral arteries, antegrade flow. Impression: Less than 50% diameter stenosis bilaterally All stenosis was measured based on the NASCET criteria. Velocity criteria are extrapolated from diameter data as defined by the Society of radiologists in ultrasound consensus conference. Radiology 2003:229; 340-346
[2019-08-02] MEDS: Irbesartan 150mg tablet ORAL SCH (13:03)
[2019-08-02 16:00] VITALS: BP 155/69
--- NOTE | 2019-08-02 16:00 | Consultation ---
DATE OF CONSULTATION: 08/02/2019 NEPHROLOGY CONSULTATION CONSULTING PHYSICIAN: Alexander Lynch MD. REFERRING PHYSICIAN: Dr. Mosley. REASON FOR CONSULTATION: Abnormal renal function. HISTORY OF PRESENT ILLNESS: The patient is a 64-year-old man who presents with new-onset left arm weakness over the past few days. There is a 40-year history of diabetes. He also has hypertension, COPD, and some diabetic neuropathy and hyperlipidemia. He says there is worsening weakness in the left arm over the past several days. On admission, the BUN of 30 and creatinine of 1.6. Apparently, urine tox screen was positive for phencyclidine and marijuana. ALLERGIES: To tramadol. HOME MEDICATIONS: He cannot give an adequate list over the phone. He states he takes Lantus insulin 40 units daily, but adjusted and blood pressure medicine possibly metoprolol and the cholesterol medicine possibly Lipitor. On the computer are listed azithromycin and gabapentin. HABITS: He says he is not a cigarette smoker or alcohol user, but he has a drug screen as above and admits to marijuana. PAST SURGICAL HISTORY: Left arm trauma and cataracts in both eyes. SYSTEM REVIEW: HEAD, EYES, EARS, NOSE AND THROAT: Apparently, he has had glaucoma and cataracts in the eyes. It is not clear if he has had diabetic retinopathy. Hearing is good. ENDOCRINE: Long-standing diabetes. No known thyroid disease. PULMONARY: Denies chronic cough. He may have had mild asthma. CARDIAC: History of hypertension. No history of chronic leg edema, CHF, or OR. He has had high cholesterol. GASTROINTESTINAL: No nausea, vomiting, or abdominal pain. GENITOURINARY: He voids well without dysuria ir hesitancy. Nocturia 1 to 2 times per night. NEUROLOGIC: He has had a prior stroke with left-sided weakness with minimal residual. PHYSICAL EXAMINATION: GENERAL: The patient is an alert man sitting up in a chair. VITAL SIGNS: Temperature 98.7, pulse 86, respirations 20, and blood pressure 176/89. HEAD, EYES, EARS, NOSE, AND THROAT: Sclerae are nonicteric. Ocular motions intact in all directions. There is mild periorbital edema. Throat clear. LUNGS: Clear. HEART: Regular rhythm. No murmur. ABDOMEN: Soft without organomegaly or masses. EXTREMITIES: No edema, cyanosis, or clubbing. There is some excoriations. NEUROLOGIC: He is alert, oriented, clear speech. Ocular motions intact in all directions. Smile symmetric. Tongue is midline. There is a left-sided arm weakness with strength about 4-/5. Gait is not tested. LABORATORY DATA: Review of pertinent labs show normal electrolytes, BUN 30, creatinine 1.6, and albumin of 3.7 on admission. Repeat BUN 25 and 1.3. Urinalysis is not back. Hemoglobin A1c is 8.7. IMPRESSION: 1. Mild elevation in BUN and creatinine on admission, maybe prerenal in nature, possibly to diuretics as an outpatient. 2. At risk for diabetic nephropathy in view of his 40-year history of diabetes. Urinalysis and further studies pending. 3. New-onset of CVA with left-sided weakness. 4. Hypertensive heart disease. 5. Positive drug screen. 6. Hyperlipidemia. PLAN: At this time, I will try to keep the patient on IRA or ARB to slow the progression of renal failure. Watch him closely in view of his comorbidities. Control blood pressure and glucose and he is having evaluation for his CVA. Alexander Lynch M.D. DR: TONY JOB#: [id number] CC:
--- NOTE | 2019-08-02 17:22 | Diagnostic Imaging Report ---
Indication: Left-sided weakness Technique: sagittal T1 fast spin echo, axial T1 FLAIR, axial T2 FLAIR, axial T2 FS PROPELLER, axial T2* GRE, axial diffusion weighted images. ADC and exponential ADC maps generated Comparison: Reference is made to head CT 08/01/2019 Findings: No abnormal areas of restricted diffusion to suggest acute infarction. No acute hemorrhage or edema. No mass effect nor midline shift. Normal size ventricles and extra axial CSF spaces. There are a few scattered areas of T2 hyperintensity in the bilateral frontal lobes. There is evidence of prior bilateral cataract surgery. The vascular flow voids are preserved. The visualized sinuses are unremarkable. Impression: Negative for acute intracranial bleed or mass effect or infarct Bilateral frontal lobe T2 hyperintensities, most likely on the basis of chronic microvascular ischemic changes.
--- NOTE | 2019-08-02 17:43 | Diagnostic Imaging Report ---
Indication: Left-sided weakness Technique: Axial 3-D [id number] images were obtained through the cervical vessels. Centrally, IV administration of gadolinium contrast. Coronal TRICKS images were then obtained, and subtraction images were generated. MIP images were reconstructed. Comparison: none Findings: Patent nonstenotic right brachiocephalic artery. There is an approximately 40% diameter stenosis of the origin of the right internal carotid artery. Patent nonstenotic common carotid artery distal to this. The extracranial internal carotid artery is patent, nonstenotic. There may be some narrowing of the carotid siphon, although this is difficult to visualize due to great tortuosity at this location. There may also be some fusiform aneurysmal dilatation of the internal carotid artery at the proximal carotid siphon. Patent nonstenotic left common carotid artery. There is narrowing of at least 50% at the origin of the left internal carotid artery. There is tapered narrowing of up to 50% of the mid extracranial internal carotid artery. There is evidence of stenosis, likely significant and possibly greater than 70%, of the proximal and mid carotid siphon. There is diffuse mild narrowing of the proximal right vertebral artery, and there is possibly significant stenosis of the origin. Dominant left vertebral artery appears grossly nonstenotic. However, there is suggestion of stenosis, probably less than 50%, of the proximal intracranial vertebral artery. The proximal left subclavian artery is patent without significant stenosis. The [id number] images are very limited due to patient motion artifact. Impression: 40% diameter stenosis of the right internal carotid origin, probably not significant. Narrowing of the carotid siphon, not well visualized and therefore difficult to characterize. Possible fusiform aneurysmal dilatation of the internal carotid artery at the proximal right siphon. This may be better visualized the CT angiography Apparent 50% diameter origin narrowing of the left internal carotid artery. Suspect at least in part be artifactual, given normal findings on recent carotid duplex scan. Findings suspicious for high-grade stenosis of the left carotid siphon. Again, further evaluation with CT angiography now clarify Possible significant stenosis of the origin of the right vertebral artery. Stenosis of up to 50% of the proximal to mid right vertebral artery Probable nonsignificant stenosis of the proximal intracranial left vertebral artery
--- NOTE | 2019-08-02 17:48 | Diagnostic Imaging Report ---
Indications: Left-sided weakness Technique: 3D [id number] images obtained through the [facility]. MIP reconstructions were generated in multiple rotational projections Comparison: none Findings: Demonstrated proximal basilar artery-normal anatomic variant. Mild narrowing of the distal left vertebral artery demonstrated on recent neck CT angiogram is not evident on these images. The basilar artery is patent and nonstenotic. MIP reconstructed images demonstrate areas of stenosis of the P1 segments of the posterior cerebral arteries bilaterally, but these are not corroborated on the source images and are likely artifactual. The distal posterior cerebral artery and proximal branches are patent and nonstenotic. There is evidence of high-grade stenosis are greater than 50%, of the proximal left carotid siphon and another of the distal left carotid siphon. These are also visualized on the contrast MRA of the neck and are probably real. There is suggestion of fusiform aneurysmal dilatation of the proximal right carotid siphon. There is suggestion of borderline significant narrowing, approximately 50%, of the distal right carotid siphon. There is suggestion of narrowing, borderline significant, of the distal right A1 segment. The left A1 segment is diffusely narrowed. The anterior communicating artery is patent. The bilateral M1 segments are patent nonstenotic. Impression: Suspect high-grade dependent stenoses of the left carotid siphon. Consider CT angiography to better characterize Possible fusiform aneurysmal dilatation of the proximal right carotid siphon and borderline significant stenosis of the distal right carotid siphon Possible significant narrowing of the distal right A1 segment. The distal left A1 segment narrowing is probably developmental.
[2019-08-02 17:56] LABS: APPEARANCE,URINE CLEAR; BILIRUBIN, URINE NEGATIVE (NEGATIVE); COLOR,URINE PALE YELLOW; GLUCOSE, URINE (UA) 2+ (NEGATIVE); KETONES,URINE NEGATIVE (NEGATIVE); LEUKOCYTE ESTERASE ,URINE NEGATIVE (NEGATIVE); NITRITE,URINE NEGATIVE (NEGATIVE); PH,URINE 7 (4.5-8.0); PROTEIN,URINE NEGATIVE (NEGATIVE); UROBILINOGEN,URINE NORMAL MG/DL (0.0-1.0)
[2019-08-02 20:00] VITALS: BP 147/73
[2019-08-02] MEDS: Atorvastatin 20mg tab ORAL SCH (22:14)
[2019-08-02] MEDS: Levemir Flexpen SUBQ SCH (22:16)
[2019-08-03] VITALS: BP 147/81
[2019-08-03 04:00] VITALS: BP 127/85
[2019-08-03] MEDS: NovoLOG Insulin Flexpen SUBQ SCH ×4 (06:06→21:10)
[2019-08-03 07:25] LABS: ANION GAP 6 mmol/L (5-15); BLOOD UREA NITROGEN 24 mg/dL (7-18); CARBON DIOXIDE 28 MMOL/L (21-32); CHLORIDE 105 MMOL/L (98-107); CREATININE 1.3 MG/DL (0.55-1.30); POTASSIUM 5.3 MMOL/L (3.5-5.1); SODIUM 139 MMOL/L (136-145)
[2019-08-03 08:00] VITALS: BP 163/73
[2019-08-03] MEDS: Aspirin Baby 81mg NG SCH (09:39)
[2019-08-03] MEDS: Irbesartan 150mg tablet ORAL SCH (09:41)
[2019-08-03] MEDS: Enoxaparin 40mg Inj SUBQ SCH (09:42)
--- NOTE | 2019-08-03 09:55 | Pulmonology Progress Note ---
Larissa Sy FURNACE FEEDER 08/03/19 0955: Subjective Allergies: Coded Allergies: TRAMADOL (Verified Adverse Reaction, Severe, vomiting, 09/12/12) Subjective completed MRI/MRA head and neck no acute IC pathology MRA /MRI neck suggestive of high-grade dependent stenoses of the left carotid siphon. remains afebrile, no signs of resp distress no new weakness Objective Last 24 Hour Vital Signs Date Time Temp Pulse Resp B/P (MAP) Pulse Ox O2 Delivery O2 Flow Rate FiO2 08/03/19 09:41 163/73 08/03/19 09:40 73 163/73 08/03/19 08:00 97.9 73 20 163/73 (103) 97 08/03/19 07:00 97 Room Air 08/03/19 04:00 98.8 87 16 127/85 (99) 95 08/03/19 04:00 Room Air 08/03/19 04:00 74 08/03/19 00:00 74 08/03/19 00:00 Room Air 08/03/19 00:00 97.5 78 18 147/81 (103) 99 08/02/19 21:19 97 Room Air 08/02/19 21:00 Room Air 08/02/19 20:00 83 08/02/19 20:00 97.1 73 18 147/73 (97) 96 08/02/19 16:00 97.6 69 20 155/69 (97) 96 08/02/19 16:00 78 08/02/19 13:03 164/59 08/02/19 12:00 82 08/02/19 12:00 98.3 76 18 164/59 (94) 97 Intake and Output 08/02/19 08/03/19 19:00 07:00 Intake Total 140 ml 720 ml Balance 140 ml 720 ml Intake Oral 140 ml 720 ml # Voids 4 Objective General Appearance: WD/WN, no apparent distress, alert Lines, tubes and drains: peripheral HEENT: normocephalic, atraumatic, anicteric Neck: supple Respiratory/Chest: lungs clear, no respiratory distress, no accessory muscle use Cardiovascular/Chest: normal peripheral pulses, normal rate, regular rhythm Abdomen: normal bowel sounds, non tender, soft Extremities: no calf tenderness, normal capillary refill Neurologic: alert, oriented x 3, responsive, left sided weakness and tremors Musculoskeletal: normal muscle bulk Laboratory Tests 08/02/19 17:20: Urine Color Pale yellow, Urine Appearance Clear, Urine pH 7, Urine Specific [place] 1.010, Urine Protein Negative, Urine Glucose (UA) 2+H, Urine Ketones Negative, Urine Blood Negative, Urine Nitrite Negative, Urine Bilirubin Negative , Urine Urobilinogen Normal, Urine Leukocyte Esterase Negative, Urine RBC 0, Urine WBC 0, Urine Squamous Epithelial Cells None, Urine Bacteria None, Urine Random Creatinine [Pending], Urine Random Microalbumin [Pending], Urine Microalbumin/Creatinine Ratio [Pending] 08/03/19 06:10: Sodium Level 139, Potassium Level 5.3H, Chloride Level 105, Carbon Dioxide Level 28, Anion Gap 6, Blood Urea Nitrogen 24H, Creatinine 1.3, Estimat Glomerular Filtration Rate > 60, Glucose Level 117H, Calcium Level 9.0 Current Medications Medications (Trade) Dose Ordered Sig/Todd Route PRN Reason Start Time Stop Time Status Last Admin Dose Admin Acetaminophen/ Hydrocodone Bitart ([place] 5/325) 1 tab Q6H PRN ORAL For Pain 08/01/19 13:42 08/08/19 13:41 08/01/19 14:00 Albuterol/ Ipratropium (Albuterol/ Ipratropium) 3 ml Q4H PRN HHN Shortness of Breath 08/01/19 15:11 08/06/19 15:10 Amlodipine Besylate (Norvasc) 5 mg DAILY ORAL 08/02/19 09:00 09/01/19 08:59 08/03/19 09:40 Aspirin (ASA) 81 mg DAILY NG 08/02/19 09:00 09/16/19 08:59 08/03/19 09:39 Atorvastatin Calcium (Lipitor) 20 mg BEDTIME ORAL 08/02/19 21:00 10/31/19 20:59 08/02/19 22:14 Clonidine HCl (Catapres Tab) 0.1 mg Q6H PRN ORAL sbp above 160 08/02/19 11:00 10/31/19 10:59 Dextrose (Dextrose 50%) 25 ml Q30M PRN IV Hypoglycemia 08/01/19 13:42 10/30/19 13:41 Dextrose (Dextrose 50%) 50 ml Q30M PRN IV Hypoglycemia 08/01/19 13:42 10/30/19 13:41 Enoxaparin Sodium (Lovenox) 40 mg DAILY SUBQ 08/02/19 09:00 10/31/19 08:59 08/03/19 09:42 Gadobutrol (Gadavist) 7.5 mmol NOW PRN IV Radiology Procedure 08/01/19 15:00 08/05/19 14:59 Insulin Aspart (NovoLOG) BEFORE MEALS AND HS SUBQ 08/01/19 16:30 10/30/19 16:29 08/02/19 22:17 Insulin Detemir (Levemir) 30 units BEDTIME SUBQ 08/02/19 21:00 10/31/19 20:59 08/02/19 22:16 Irbesartan (Avapro) 150 mg DAILY ORAL 08/02/19 13:00 10/31/19 12:59 08/03/19 09:41 Magnesium Hydroxide (Mom) 30 ml Q6H PRN ORAL Constipation 08/02/19 08:00 09/01/19 07:59 08/02/19 08:24 Assessment/Plan Assessment/Plan ASSESSMENT left side weakness, r/o CVA suspected high-grade dependent stenoses of the left carotid siphon VAZQUEZ vs CKD DM with hyperglycemia substance abuse HTN with HTN urgency COPD Hypercholesteremia ? prior hx of CVA ( no evidence of CY head) Homeless PLAN OF CARE tele -MRI brain no acute IC pathologic Bilateral frontal lobe T2 hyperintensities, most likely on the basis of chronic microvascular ischemic changes. - MRI/MRA neck ->suspect high-grade dependent stenoses of the left carotid siphon. Consider CT angiography to better characterize Possible fusiform aneurysmal dilatation of the proximal right carotid siphon and borderline significant stenosis of the distal right carotid siphon will proceed with CT angio if confirmed high grade stenosis-> vascular surgery eval Carotid Duplex less than 50% stenosis bilaterally Neuro eval appreciated ASA lipid panel with elevated TC and LDL, increase statin dose educated on low fat low cholesterol diet swallow eval- passed, no diff with swallowing PT eval and Rx BS management with SSI, Levemir added by nephro for better control, HgA1c 8.7, diabetic diet and diabetic teaching , encourage corporate compliance manager BP closely BP management with CCB, increase Norvasc dose and IRA ; Clonidine prn just added for BP spikes supplemental O2 prn to keep sat above 90% HHN with Duoneb prn DVT prophylaxis monitor renal paramerts, lytes, correct lytes as needed, mild hyper K likely due to IRA, fup with nephro recs avoid nephrotoxics, creat down to normal parliamentary counsel on abstinence from illicit street drugs case discussed and evaluated by supervising physician Harjinder Mosley MD 08/03/19 1556: Subjective Allergies: Coded Allergies: TRAMADOL (Verified Adverse Reaction, Severe, vomiting, 09/12/12) Assessment/Plan Assessment/Plan Patient seen and examined with FURNACE FEEDER. Agree with above A&P as it reflects our joint deliberations. Larissa Sy NP Aug 03, 2019 09:55 Harjinder Mosley MD Aug 03, 2019 15:56
[2019-08-03] MEDS ORDERED: Omnipaque 350 100ml vial INJ PRN (10:15)
[2019-08-03 12:00] VITALS: BP 153/97
--- NOTE | 2019-08-03 13:14 | Diagnostic Imaging Report ---
ndication: Neck pain Technique: IV administration nonionic contrast. Spiral acquisitions obtained from the lung bases to the lung apices. Multiplanar and 3-D reconstructions were generated. Total dose length product 274 mGycm. CTDIvol(s) one, 55, 6 mGy. Dose reduction achieved using automated exposure control Comparison: Head and neck MRA 08/02/2019 Findings: Arterial opacification is suboptimal, presumably due to suboptimal bolus timing. Unremarkable aortic arch. Normal classic branching anatomy of the great neck vessels. Patent nonstenotic right brachiocephalic artery. Patent and nonstenotic right common carotid artery. Stenosis of the right internal carotid origin demonstrated on previous MRA is not evident on this study. That was presumably artifactual. At the junction of the distal intrapetrous carotid artery and proximal carotid siphon, there is a bandlike narrowing, degree of stenosis difficult to estimate but appearing to be about 50% on the axial images. As described on prior MRA, the proximal carotid siphon is mildly ectatic although not frankly aneurysmal, measuring no greater than 4 mm in diameter. There is a stenosis of the distal carotid siphon of approximately 50%. The left common carotid artery is poorly visualized proximally, due to streak artifact from the adjacent contrast filled subclavian vein. No definite significant stenosis is demonstrated. There is an approximately 40% origin stenosis of the internal carotid artery. The remainder of the extracranial internal carotid artery is patent nonstenotic. There is evidence of stenosis, possibly significant, of the proximal carotid siphon, also described on recent MRA. However, due to the presence of calcification as well as the suboptimal degree of contrast opacification, the degree of stenosis is difficult to estimate although possibly significant. Dominant left, smaller caliber right vertebral artery. Patent nonstenotic proximal right subclavian artery. There is suggestion of a high-grade stenosis of the right vertebral artery as it passes between the C5 and C6 foramina. This becomes a larger caliber vessel distally. There may be some narrowing at the junction with the basilar artery. The left vertebral artery is a larger dominant vessel. There may be stenosis at its origin, although this is difficult to assess due to streak artifact from adjacent opacified veins. The remainder of the left vertebral artery is normal in caliber. The intracranial vessels are not well-demonstrated, due to the suboptimal contrast opacification as well as a larger [id number] utilized for visualization of the neck vessels. 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 There does appear to be a significant stenosis of the distal P1 segment of the right posterior cerebral artery. There are tandem borderline significant stenoses of the left P1 segments of the left posterior cerebral arteries. The proximal middle cerebral arteries are patent and nonstenotic. The left A1 segment is diffusely small in caliber, possibly with one or more significant stenoses. The right A1 segment appears to be patent and nonstenotic. The A2 vessels and proximal branches appear to be patent. The included lung apices demonstrate mosaic perfusion pattern. The thyroid is unremarkable. No cervical mass or adenopathy. The upper aerodigestive tract is unremarkable. The bones demonstrate degenerative spondylosis changes of the cervical spine. Impression: Limited exam, as described due to poor contrast opacification of the vessels. Approximately 50% bandlike narrowing of the junction of the distal right intrapetrous carotid artery and proximal carotid siphon Mild ectasia but no aneurysm of the proximal right carotid siphon. 50% diameter stenosis of the distal right carotid siphon Nonsignificant stenosis of the right internal carotid origin. Possibly significant stenosis of the proximal left carotid siphon, findings less striking than seen on recent MR angiograms. High-grade local stenosis of the mid right vertebral artery Demonstration of the proximal basilar artery-normal anatomic variant Likely significant stenosis of the proximal right posterior cerebral artery. More questionable stenoses of the left posterior cerebral arteries. Diffusely small left proximal anterior cerebral artery, likely developmental, with possible one or more focal stenoses Nonspecific pulmonary mosaic perfusion pattern, could represent COPD changes are pulmonary edema among other possibilities Incidental finding of degenerative cervical spondylosis The CT scanner at [facility] is accredited by the [employer] and the scans are performed using protocols designed to limit radiation exposure to as low as reasonably achievable to attain images of sufficient resolution adequate for diagnostic evaluation.
--- NOTE | 2019-08-03 14:20 | Nephrology Progress Note ---
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 (4) Left-sided weakness (5) Stroke-like symptoms (6) CKD (chronic kidney disease) stage 3, GFR 30-59 ml/min Plan K 5.3 stop irbesartan but consider resume later, add hctz for bp and K Subjective Constitutional: Reports: weakness HEENT: Reports: no symptoms Genitourinary: Reports: no symptoms Neurologic/Psychiatric: Reports: weakness Objective Objective Last 24 Hour Vital Signs Date Time Temp Pulse Resp B/P (MAP) Pulse Ox O2 Delivery O2 Flow Rate FiO2 08/03/19 12:00 98.1 78 20 153/97 (115) 98 08/03/19 12:00 79 08/03/19 09:41 163/73 08/03/19 09:40 73 163/73 08/03/19 09:00 Room Air 08/03/19 08:00 97.9 73 20 163/73 (103) 97 08/03/19 08:00 74 08/03/19 07:00 97 Room Air 08/03/19 04:00 98.8 87 16 127/85 (99) 95 08/03/19 04:00 Room Air 08/03/19 04:00 74 08/03/19 00:00 74 08/03/19 00:00 Room Air 08/03/19 00:00 97.5 78 18 147/81 (103) 99 08/02/19 21:19 97 Room Air 08/02/19 21:00 Room Air 08/02/19 20:00 83 08/02/19 20:00 97.1 73 18 147/73 (97) 96 08/02/19 16:00 97.6 69 20 155/69 (97) 96 08/02/19 16:00 78 Intake and Output 08/02/19 08/03/19 19:00 07:00 Intake Total 140 ml 720 ml Balance 140 ml 720 ml Intake Oral 140 ml 720 ml # Voids 4 Laboratory Tests 08/02/19 17:20: Urine Color Pale yellow, Urine Appearance Clear, Urine pH 7, Urine Specific [place] 1.010, Urine Protein Negative, Urine Glucose (UA) 2+H, Urine Ketones Negative, Urine Blood Negative, Urine Nitrite Negative, Urine Bilirubin Negative , Urine Urobilinogen Normal, Urine Leukocyte Esterase Negative, Urine RBC 0, Urine WBC 0, Urine Squamous Epithelial Cells None, Urine Bacteria None, Urine Random Creatinine [Pending], Urine Random Microalbumin [Pending], Urine Microalbumin/Creatinine Ratio [Pending] 08/03/19 06:10: Sodium Level 139, Potassium Level 5.3H, Chloride Level 105, Carbon Dioxide Level 28, Anion Gap 6, Blood Urea Nitrogen 24H, Creatinine 1.3, Estimat Glomerular Filtration Rate > 60, Glucose Level 117H, Calcium Level 9.0 Height (Feet): 5 Height (Inches): 9.00 Weight (Pounds): 188 General Appearance: no apparent distress, alert EENT: normal ENT inspection Neck: normal alignment Cardiovascular: regular rhythm Respiratory/Chest: lungs clear Abdomen: non tender, soft Neurologic: motor weakness Alexander Lynch MD Aug 03, 2019 14:20
[2019-08-03] MEDS: hydroCHLOROthiazide 25mg cap ORAL SCH (14:23)
[2019-08-03 16:00] VITALS: BP 136/64
[2019-08-03] MEDS ORDERED: ASPIRIN EC81 MG ORAL (19:01)
[2019-08-03] MEDS ORDERED: LANTUS SOL100 UNIT/1 SUBQ (19:01)
[2019-08-03] MEDS ORDERED: MILK OF MA400 MG/51 ORAL (19:01)
[2019-08-03] MEDS ORDERED: COSOPT EYE DROP10 M1 RIGHT EYE (19:01)
[2019-08-03] MEDS ORDERED: STOOL SOFTENER100 MG PO (19:01)
[2019-08-03] MEDS ORDERED: XALATAN2.5 ML BOTH EYES (19:01)
[2019-08-03] MEDS ORDERED: ACETAMINOPHEN325 M1 ORAL (19:01)
[2019-08-03] MEDS ORDERED: BRIMONIDINE TART5 ML BOTH EYES (19:01)
[2019-08-03 20:00] VITALS: BP 121/69
[2019-08-03] MEDS: Atorvastatin 20mg tab ORAL SCH (21:06)
[2019-08-03] MEDS: Levemir Flexpen SUBQ SCH (21:09)
[2019-08-04] VITALS: BP 129/75
[2019-08-04 04:00] VITALS: BP 116/79
[2019-08-04] MEDS: NovoLOG Insulin Flexpen SUBQ SCH ×4 (05:06→20:53)
--- NOTE | 2019-08-04 07:37 | Pulmonology Progress Note ---
Larissa Sy [employer] SE[employer] C[employer]TER 08/04/19 0737: Subjective Allergies: Coded Allergies: TRAMADOL (Verified Adverse Reaction, Severe, vomiting, 09/12/12) Subjective completed MRI/MRA head and neck no acute IC pathology MRA /MRI neck suggestive of high-grade dependent stenoses of the left carotid siphon. remains afebrile, no signs of resp distress no new weakness CTA neck done yesterday and reviewed denies CP, SOB Objective Last 24 Hour Vital Signs Date Time Temp Pulse Resp B/P (MAP) Pulse Ox O2 Delivery O2 Flow Rate FiO2 08/04/19 04:00 103 08/04/19 04:00 98.9 78 20 116/79 (91) 97 08/04/19 00:19 97 Room Air 08/04/19 00:00 75 08/04/19 00:00 97.6 79 18 129/75 (93) 97 08/03/19 20:45 Room Air 08/03/19 20:00 93 08/03/19 20:00 97.1 71 18 121/69 (86) 99 08/03/19 16:00 68 08/03/19 16:00 98.5 67 20 136/64 (88) 98 08/03/19 12:00 98.1 78 20 153/97 (115) 98 08/03/19 12:00 79 08/03/19 09:41 163/73 08/03/19 09:40 73 163/73 08/03/19 09:00 Room Air 08/03/19 08:00 97.9 73 20 163/73 (103) 97 08/03/19 08:00 74 Intake and Output 08/03/19 08/04/19 19:00 07:00 Intake Total 500 ml 760 ml Balance 500 ml 760 ml Intake Oral 500 ml 760 ml # Voids 5 5 Objective General Appearance: WD/WN, no apparent distress, alert Lines, tubes and drains: peripheral HEENT: normocephalic, atraumatic, anicteric Neck: supple Respiratory/Chest: lungs clear, no respiratory distress, no accessory muscle use Cardiovascular/Chest: normal peripheral pulses, normal rate, regular rhythm Abdomen: normal bowel sounds, non tender, soft Extremities: no calf tenderness, normal capillary refill Neurologic: alert, oriented x 3, responsive, left sided weakness and tremors Musculoskeletal: normal muscle bulk Current Medications Medications (Trade) Dose Ordered Sig/Todd Route PRN Reason Start Time Stop Time Status Last Admin Dose Admin Acetaminophen/ Hydrocodone Bitart ([place] 5/325) 1 tab Q6H PRN ORAL For Pain 08/01/19 13:42 08/08/19 13:41 08/01/19 14:00 Albuterol/ Ipratropium (Albuterol/ Ipratropium) 3 ml Q4H PRN HHN Shortness of Breath 08/01/19 15:11 08/06/19 15:10 Amlodipine Besylate (Norvasc) 10 mg DAILY ORAL 08/04/19 09:00 09/03/19 08:59 Aspirin (ASA) 81 mg DAILY NG 08/02/19 09:00 09/16/19 08:59 08/03/19 09:39 Atorvastatin Calcium (Lipitor) 20 mg BEDTIME ORAL 08/02/19 21:00 10/31/19 20:59 08/03/19 21:06 Clonidine HCl (Catapres Tab) 0.1 mg Q6H PRN ORAL sbp above 160 08/02/19 11:00 10/31/19 10:59 Dextrose (Dextrose 50%) 25 ml Q30M PRN IV Hypoglycemia 08/01/19 13:42 10/30/19 13:41 Dextrose (Dextrose 50%) 50 ml Q30M PRN IV Hypoglycemia 08/01/19 13:42 10/30/19 13:41 Enoxaparin Sodium (Lovenox) 40 mg DAILY SUBQ 08/02/19 09:00 10/31/19 08:59 08/03/19 09:42 Gadobutrol (Gadavist) 7.5 mmol NOW PRN IV Radiology Procedure 08/01/19 15:00 08/05/19 14:59 Hydrochlorothiazide (Hydrodiuril) 25 mg DAILY ORAL 08/03/19 14:15 09/02/19 14:14 08/03/19 14:23 Insulin Aspart (NovoLOG) BEFORE MEALS AND HS SUBQ 08/01/19 16:30 10/30/19 16:29 08/03/19 21:10 Insulin Detemir (Levemir) 30 units BEDTIME SUBQ 08/02/19 21:00 10/31/19 20:59 08/03/19 21:09 Iohexol (Omnipaque 350 100ml) 100 ml NOW PRN INJ Radiology Procedure 08/03/19 10:15 08/05/19 10:15 Magnesium Hydroxide (Mom) 30 ml Q6H PRN ORAL Constipation 08/02/19 08:00 09/01/19 07:59 08/02/19 08:24 Assessment/Plan Assessment/Plan ASSESSMENT left side weakness, r/o CVA suspected high-grade dependent stenoses of the left carotid siphon VAZQUEZ vs CKD DM with hyperglycemia substance abuse HTN with HTN urgency COPD Hypercholesteremia ? prior hx of CVA ( no evidence of CY head) Homeless PLAN OF CARE tele -MRI brain no acute IC pathologic Bilateral frontal lobe T2 hyperintensities, most likely on the basis of chronic microvascular ischemic changes. - MRI/MRA neck ->suspect high-grade dependent stenoses of the left carotid siphon. Consider CT angiography to better characterize Possible fusiform aneurysmal dilatation of the proximal right carotid siphon and borderline significant stenosis of the distal right carotid siphon will proceed with CT angio if confirmed high grade stenosis-> vascular surgery eval CTA neck: -Approximately 50% bandlike narrowing of the junction of the distal right intrapetrous carotid artery and proximal carotid siphon -Mild ectasia but no aneurysm of the proximal right carotid siphon. -50% diameter stenosis of the distal right carotid siphon -Nonsignificant stenosis of the right internal carotid origin. -Possibly significant stenosis of the proximal left carotid siphon, findings less striking than seen on recent MR angiograms. -High-grade local stenosis of the mid right vertebral artery -Likely significant stenosis of the proximal right posterior cerebral artery. More questionable stenoses of the left posterior cerebral arteries. -Diffusely small left proximal anterior cerebral artery, likely developmental, with possible one or more focal stenoses -Nonspecific pulmonary mosaic perfusion pattern, could represent COPD changes are pulmonary edema among other possibilities -Carotid Duplex less than 50% stenosis bilaterally Neuro eval appreciated ASA lipid panel with elevated TC and LDL, increase statin dose educated on low fat low cholesterol diet swallow eval- passed, no diff with swallowing PT eval and Rx BS management with SSI, Levemir added by nephro for better control, HgA1c 8.7, diabetic diet and diabetic teaching , encourage it compliance analyst BP closely BP management with CCB, increase Norvasc dose and HcTz ; Clonidine prn just added for BP spikes BP stabilized supplemental O2 prn to keep sat above 90% HHN with Duoneb prn DVT prophylaxis monitor renal paramerts, lytes, correct lytes as needed, mild hyper K likely due to IRA, fup with nephro recs: IRA dc, started on Hctz avoid nephrotoxics, creat down to normal recreational counselor on abstinence from illicit street drugs case discussed and evaluated by supervising physician Harjinder Mosley MD 08/04/19 1529: Subjective Allergies: Coded Allergies: TRAMADOL (Verified Adverse Reaction, Severe, vomiting, 09/12/12) Assessment/Plan Assessment/Plan Patient seen and examined with [employer] SE[employer] COVER FITTER. Agree with above A&P as it reflects our joint deliberations. CTA neck reviewed. Will need maximal medical management with BP control, daily aspirin, and statin. Will ask for vascular surgery eval for carotid artery stenosis. Larissa Sy NP Aug 04, 2019 07:37 Harjinder Mosley MD Aug 04, 2019 15:29
[2019-08-04 08:00] VITALS: BP 164/92
[2019-08-04] MEDS: Aspirin Baby 81mg NG SCH (08:40)
[2019-08-04] MEDS: hydroCHLOROthiazide 25mg cap ORAL SCH (08:40)
[2019-08-04] MEDS: Enoxaparin 40mg Inj SUBQ SCH (08:43)
[2019-08-04 08:48] LABS: HEMATOCRIT 43.4 % (42.0-52.0); HEMOGLOBIN 14.4 G/DL (14.2-18.0); MEAN CORPUSCULAR VOLUME 95 FL (80-99); PLATELET COUNT 226 K/UL (150-450); RED BLOOD COUNT 4.57 M/UL (4.70-6.10); RED CELL DISTRIBUTION WIDTH 11.8 % (11.6-14.8); WHITE BLOOD COUNT 7.6 K/UL (4.8-10.8)
[2019-08-04 09:59] LABS: ANION GAP 8 mmol/L (5-15); BLOOD UREA NITROGEN 22 mg/dL (7-18); CALCIUM 9.4 MG/DL (8.5-10.1); CARBON DIOXIDE 29 MMOL/L (21-32); CHLORIDE 103 MMOL/L (98-107); CREATININE 1.3 MG/DL (0.55-1.30); POTASSIUM 4.7 MMOL/L (3.5-5.1); SODIUM 140 MMOL/L (136-145)
[2019-08-04 12:00] VITALS: BP 136/75
[2019-08-04] MEDS: Irbesartan 150mg tablet ORAL SCH (12:10)
--- NOTE | 2019-08-04 13:57 | Nephrology Progress Note ---
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 (4) Left-sided weakness (5) Stroke-like symptoms (6) CKD (chronic kidney disease) stage 3, GFR 30-59 ml/min Plan K 4.7 restart irbesartan , add hctz for bp and K Subjective HEENT: Reports: no symptoms Genitourinary: Reports: no symptoms Neurologic/Psychiatric: Reports: weakness Objective Objective Last 24 Hour Vital Signs Date Time Temp Pulse Resp B/P (MAP) Pulse Ox O2 Delivery O2 Flow Rate FiO2 08/04/19 12:10 136/75 08/04/19 12:00 97.0 73 20 136/75 (95) 97 08/04/19 10:26 98 Room Air 21 08/04/19 09:00 Room Air 08/04/19 08:40 84 164/92 08/04/19 08:00 96.9 84 18 164/92 (116) 98 08/04/19 07:47 86 08/04/19 04:00 103 08/04/19 04:00 98.9 78 20 116/79 (91) 97 08/04/19 00:19 97 Room Air 08/04/19 00:00 75 08/04/19 00:00 97.6 79 18 129/75 (93) 97 08/03/19 20:45 Room Air 08/03/19 20:00 93 08/03/19 20:00 97.1 71 18 121/69 (86) 99 08/03/19 16:00 68 08/03/19 16:00 98.5 67 20 136/64 (88) 98 Intake and Output 08/03/19 08/04/19 19:00 07:00 Intake Total 500 ml 760 ml Balance 500 ml 760 ml Intake Oral 500 ml 760 ml # Voids 5 5 Laboratory Tests 08/04/19 07:30: White Blood Count 7.6, Red Blood Count 4.57L, Hemoglobin 14.4, Hematocrit 43.4, Mean Corpuscular Volume 95, Mean Corpuscular Hemoglobin 31.6H, Mean Corpuscular Hemoglobin Concent 33.3, Red Cell Distribution Width 11.8, Platelet Count 226, Mean Platelet Volume 8.7, Neutrophils (%) (Auto) , Lymphocytes (%) (Auto) , Monocytes (%) (Auto) , Eosinophils (%) (Auto) , Basophils (%) (Auto) , Differential Total Cells Counted 100, Neutrophils % (Manual) 65, Lymphocytes % ( Manual) 26, Monocytes % (Manual) 6, Eosinophils % (Manual) 3, Basophils % ( Manual) 0, Band Neutrophils 0, Platelet Estimate Adequate, Platelet Morphology Normal, Red Blood Cell Morphology Normal, Sodium Level 140, Potassium Level 4.7 , Chloride Level 103, Carbon Dioxide Level 29, Anion Gap 8, Blood Urea Nitrogen 22H, Creatinine 1.3, Estimat Glomerular Filtration Rate > 60, Glucose Level 123H , Calcium Level 9.4 Height (Feet): 5 Height (Inches): 9.00 Weight (Pounds): 188 General Appearance: no apparent distress EENT: normal ENT inspection Cardiovascular: normal rate Respiratory/Chest: lungs clear Abdomen: soft Extremities: no edema Neurologic: motor weakness Alexander Lynch MD Aug 04, 2019 13:57
[2019-08-04 16:00] VITALS: BP 132/74
[2019-08-04 20:00] VITALS: BP 143/76
[2019-08-04] MEDS: Atorvastatin 20mg tab ORAL SCH (20:45)
[2019-08-04] MEDS: Levemir Flexpen SUBQ SCH (20:52)
[2019-08-05] VITALS: BP 137/68
[2019-08-05 04:00] VITALS: BP 122/73
[2019-08-05] MEDS: NovoLOG Insulin Flexpen SUBQ SCH ×4 (06:38→21:16)
--- NOTE | 2019-08-05 07:47 | Pulmonology Progress Note ---
Larissa Sy [employer] PLAYER 08/05/19 0747: Subjective Allergies: Coded Allergies: TRAMADOL (Verified Adverse Reaction, Severe, vomiting, 09/12/12) Subjective completed MRI/MRA head and neck no acute IC pathology MRA /MRI neck suggestive of high-grade dependent stenoses of the left carotid siphon. remains afebrile, no signs of resp distress CTA neck reviewed denies CP, SOB, no new weakness Objective Last 24 Hour Vital Signs Date Time Temp Pulse Resp B/P (MAP) Pulse Ox O2 Delivery O2 Flow Rate FiO2 08/05/19 04:00 98.7 75 18 122/73 (89) 99 08/05/19 04:00 66 08/05/19 00:00 74 08/05/19 00:00 98.3 79 20 137/68 (91) 99 08/04/19 21:00 Room Air 08/04/19 20:00 97.9 75 18 143/76 (98) 99 08/04/19 20:00 69 08/04/19 19:29 98 Room Air 21 08/04/19 16:00 97.2 67 18 132/74 (93) 98 08/04/19 15:34 89 08/04/19 12:10 136/75 08/04/19 12:00 97.0 73 20 136/75 (95) 97 08/04/19 11:38 67 08/04/19 10:26 98 Room Air 21 08/04/19 09:00 Room Air 08/04/19 08:40 84 164/92 08/04/19 08:00 96.9 84 18 164/92 (116) 98 08/04/19 07:47 86 Intake and Output 08/04/19 08/05/19 19:00 07:00 Intake Total 480 ml 840 ml Balance 480 ml 840 ml Intake Oral 480 ml 840 ml # Voids 4 3 Objective General Appearance: WD/WN, no apparent distress, alert Lines, tubes and drains: peripheral HEENT: normocephalic, atraumatic, anicteric Neck: supple Respiratory/Chest: lungs clear, no respiratory distress, no accessory muscle use Cardiovascular/Chest: normal peripheral pulses, normal rate, regular rhythm Abdomen: normal bowel sounds, non tender, soft Extremities: no calf tenderness, normal capillary refill Neurologic: alert, oriented x 3, responsive, left sided weakness and tremors Musculoskeletal: normal muscle bulk Current Medications Medications (Trade) Dose Ordered Sig/Todd Route PRN Reason Start Time Stop Time Status Last Admin Dose Admin Acetaminophen/ Hydrocodone Bitart ([place] 5/325) 1 tab Q6H PRN ORAL For Pain 08/01/19 13:42 08/08/19 13:41 08/01/19 14:00 Albuterol/ Ipratropium (Albuterol/ Ipratropium) 3 ml Q4H PRN HHN Shortness of Breath 08/01/19 15:11 08/06/19 15:10 Amlodipine Besylate (Norvasc) 10 mg DAILY ORAL 08/04/19 09:00 09/03/19 08:59 08/04/19 08:40 Aspirin (ASA) 81 mg DAILY NG 08/02/19 09:00 09/16/19 08:59 08/04/19 08:40 Atorvastatin Calcium (Lipitor) 20 mg BEDTIME ORAL 08/02/19 21:00 10/31/19 20:59 08/04/19 20:45 Clonidine HCl (Catapres Tab) 0.1 mg Q6H PRN ORAL sbp above 160 08/02/19 11:00 10/31/19 10:59 Dextrose (Dextrose 50%) 25 ml Q30M PRN IV Hypoglycemia 08/01/19 13:42 10/30/19 13:41 Dextrose (Dextrose 50%) 50 ml Q30M PRN IV Hypoglycemia 08/01/19 13:42 10/30/19 13:41 Enoxaparin Sodium (Lovenox) 40 mg DAILY SUBQ 08/02/19 09:00 10/31/19 08:59 08/04/19 08:43 Gadobutrol (Gadavist) 7.5 mmol NOW PRN IV Radiology Procedure 08/01/19 15:00 08/05/19 14:59 Hydrochlorothiazide (Hydrodiuril) 25 mg DAILY ORAL 08/03/19 14:15 09/02/19 14:14 08/04/19 08:40 Insulin Aspart (NovoLOG) BEFORE MEALS AND HS SUBQ 08/01/19 16:30 10/30/19 16:29 08/05/19 06:38 Insulin Detemir (Levemir) 30 units BEDTIME SUBQ 08/02/19 21:00 10/31/19 20:59 08/04/19 20:52 Iohexol (Omnipaque 350 100ml) 100 ml NOW PRN INJ Radiology Procedure 08/03/19 10:15 08/05/19 10:15 Irbesartan (Avapro) 150 mg DAILY ORAL 08/04/19 11:14 11/02/19 11:13 08/04/19 12:10 Magnesium Hydroxide (Mom) 30 ml Q6H PRN ORAL Constipation 08/02/19 08:00 09/01/19 07:59 08/02/19 08:24 Assessment/Plan Assessment/Plan ASSESSMENT left side weakness, r/o CVA suspected high-grade dependent stenoses of the left carotid siphon VAZQUEZ vs CKD DM with hyperglycemia substance abuse HTN with HTN urgency COPD Hypercholesteremia ? prior hx of CVA ( no evidence of CY head) Homeless PLAN OF CARE tele -MRI brain no acute IC pathologic Bilateral frontal lobe T2 hyperintensities, most likely on the basis of chronic microvascular ischemic changes. - MRI/MRA neck ->suspect high-grade dependent stenoses of the left carotid siphon. Consider CT angiography to better characterize Possible fusiform aneurysmal dilatation of the proximal right carotid siphon and borderline significant stenosis of the distal right carotid siphon will proceed with CT angio if confirmed high grade stenosis-> vascular surgery eval CTA neck: -Approximately 50% bandlike narrowing of the junction of the distal right intrapetrous carotid artery and proximal carotid siphon -Mild ectasia but no aneurysm of the proximal right carotid siphon. -50% diameter stenosis of the distal right carotid siphon -Nonsignificant stenosis of the right internal carotid origin. -Possibly significant stenosis of the proximal left carotid siphon, findings less striking than seen on recent MR angiograms. -High-grade local stenosis of the mid right vertebral artery -Likely significant stenosis of the proximal right posterior cerebral artery. More questionable stenoses of the left posterior cerebral arteries. -Diffusely small left proximal anterior cerebral artery, likely developmental, with possible one or more focal stenoses -Nonspecific pulmonary mosaic perfusion pattern, could represent COPD changes are pulmonary edema among other possibilities -Carotid Duplex less than 50% stenosis bilaterally Neuro eval appreciated ASA lipid panel with elevated TC and LDL, increase statin dose educated on low fat low cholesterol diet swallow eval- passed, no diff with swallowing PT eval and Rx BS management with SSI, Levemir added by nephro for better control, HgA1c 8.7, diabetic diet and diabetic teaching , encourage compliance field technician BP closely BP management with CCB, increase Norvasc dose and HcTz ; restarted on IRA by nephro since K normalized, monitor closely Clonidine prn just added for BP spikes BP stabilized supplemental O2 prn to keep sat above 90% HHN with Duoneb prn DVT prophylaxis monitor renal paramerts, lytes, correct lytes as needed, mild hyper K likely due to IRA, fup with nephro recs: IRA dc, started on Hctz avoid nephrotoxics, creat down to normal christian counselor on abstinence from illicit street drugs discussed with Dr Sales ,[facility] surgeon, over the phone who requested neurologist review CT angio of the neck for furtehr recommendations at this time medical management with a/PLT therapy, statin, BP control case discussed and evaluated by supervising physician Harjinder Mosley MD 08/05/19 1332: Subjective Allergies: Coded Allergies: TRAMADOL (Verified Adverse Reaction, Severe, vomiting, 09/12/12) Assessment/Plan Assessment/Plan Patient seen and examined with POOL PLAYER. Agree with above A&P as it reflects our joint deliberations. BP better controlled. Await neurology input regarding CTA findings. Larissa Sy NP Aug 05, 2019 07:47 Harjinder Mosley MD Aug 05, 2019 13:32
[2019-08-05] MEDS: HYDROcodone/Acetamin 5/325 tab ORAL PRN (07:53)
[2019-08-05 08:00] VITALS: BP 118/75
[2019-08-05] MEDS: Enoxaparin 40mg Inj SUBQ SCH (08:34)
[2019-08-05] MEDS: Aspirin Baby 81mg NG SCH (08:37)
[2019-08-05] MEDS: hydroCHLOROthiazide 25mg cap ORAL SCH (08:37)
[2019-08-05] MEDS: Irbesartan 150mg tablet ORAL SCH (08:37)
[2019-08-05 09:28] LABS: ANION GAP 7 mmol/L (5-15); BLOOD UREA NITROGEN 27 mg/dL (7-18); CALCIUM 8.5 MG/DL (8.5-10.1); CARBON DIOXIDE 29 MMOL/L (21-32); CHLORIDE 100 MMOL/L (98-107); CREATININE 1.4 MG/DL (0.55-1.30); POTASSIUM 4.6 MMOL/L (3.5-5.1); SODIUM 136 MMOL/L (136-145)
--- NOTE | 2019-08-05 11:01 | Nephrology Progress Note ---
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 (4) Left-sided weakness (5) Stroke-like symptoms (6) CKD (chronic kidney disease) stage 3, GFR 30-59 ml/min Plan K 4.7 4.6 restart irbesartan , add hctz for bp and K Subjective Constitutional: Reports: weakness HEENT: Reports: no symptoms Genitourinary: Reports: no symptoms Neurologic/Psychiatric: Reports: weakness Objective Objective Last 24 Hour Vital Signs Date Time Temp Pulse Resp B/P (MAP) Pulse Ox O2 Delivery O2 Flow Rate FiO2 08/05/19 09:00 Room Air 08/05/19 08:37 118/75 08/05/19 08:37 89 118/75 08/05/19 08:00 96.6 89 18 118/75 (89) 97 08/05/19 07:50 84 08/05/19 07:50 97 Room Air 21 08/05/19 04:00 98.7 75 18 122/73 (89) 99 08/05/19 04:00 66 08/05/19 00:00 74 08/05/19 00:00 98.3 79 20 137/68 (91) 99 08/04/19 21:00 Room Air 08/04/19 20:00 97.9 75 18 143/76 (98) 99 08/04/19 20:00 69 08/04/19 19:29 98 Room Air 21 08/04/19 16:00 97.2 67 18 132/74 (93) 98 08/04/19 15:34 89 08/04/19 12:10 136/75 08/04/19 12:00 97.0 73 20 136/75 (95) 97 08/04/19 11:38 67 Intake and Output 08/04/19 08/05/19 19:00 07:00 Intake Total 480 ml 840 ml Balance 480 ml 840 ml Intake Oral 480 ml 840 ml # Voids 4 3 Laboratory Tests 08/05/19 08:45: Sodium Level 136, Potassium Level 4.6, Chloride Level 100, Carbon Dioxide Level 29, Anion Gap 7, Blood Urea Nitrogen 27H, Creatinine 1.4H, Estimat Glomerular Filtration Rate > 60, Glucose Level 237#H, Calcium Level 8.5 Height (Feet): 5 Height (Inches): 9.00 Weight (Pounds): 188 General Appearance: no apparent distress, alert EENT: normal ENT inspection Neck: normal alignment Cardiovascular: normal rate Respiratory/Chest: lungs clear Abdomen: non tender Extremities: no edema Neurologic: motor weakness Alexander Lynch MD Aug 05, 2019 11:01
[2019-08-05 12:00] VITALS: BP 120/63
[2019-08-05 16:00] VITALS: BP 113/70
[2019-08-05] MEDS: Milk of Magnesia 30ml Ud ORAL PRN (18:06)
[2019-08-05 20:00] VITALS: BP 144/87
[2019-08-05] MEDS: Atorvastatin 20mg tab ORAL SCH (21:13)
[2019-08-05] MEDS: Levemir Flexpen SUBQ SCH (21:15)
[2019-08-06] VITALS: BP 121/61
[2019-08-06 04:00] VITALS: BP 137/74
[2019-08-06] MEDS: HYDROcodone/Acetamin 5/325 tab ORAL PRN ×2 (05:54→20:25)
[2019-08-06] MEDS: Milk of Magnesia 30ml Ud ORAL PRN ×2 (06:01→17:17)
[2019-08-06] MEDS: NovoLOG Insulin Flexpen SUBQ SCH ×4 (06:28→20:31)
[2019-08-06] MEDS ORDERED: NovoLOG Insulin Flexpen SUBQ SCH (06:30)
[2019-08-06 08:00] VITALS: BP 142/85
[2019-08-06 08:11] LABS: ANION GAP 9 mmol/L (5-15); BLOOD UREA NITROGEN 23 mg/dL (7-18); CALCIUM 9.5 MG/DL (8.5-10.1); CARBON DIOXIDE 29 MMOL/L (21-32); CHLORIDE 102 MMOL/L (98-107); CREATININE 1.4 MG/DL (0.55-1.30); POTASSIUM 4.5 MMOL/L (3.5-5.1); SODIUM 140 MMOL/L (136-145)
[2019-08-06] MEDS: Irbesartan 150mg tablet ORAL SCH (08:13)
[2019-08-06] MEDS: hydroCHLOROthiazide 25mg cap ORAL SCH (08:13)
[2019-08-06] MEDS: Aspirin Baby 81mg NG SCH (08:13)
[2019-08-06] MEDS: Enoxaparin 40mg Inj SUBQ SCH (08:15)
--- NOTE | 2019-08-06 09:53 | Pulmonology Progress Note ---
Larissa Sy DIRECTOR OF FINANCIAL PLANNING 08/06/19 0953: Subjective Allergies: Coded Allergies: TRAMADOL (Verified Adverse Reaction, Severe, vomiting, 09/12/12) Subjective MRA /MRI neck suggestive of high-grade dependent stenoses of the left carotid siphon. remains afebrile, no signs of resp distress CTA neck reviewed denies CP, SOB, no new weakness no CP, no SOB Objective Last 24 Hour Vital Signs Date Time Temp Pulse Resp B/P (MAP) Pulse Ox O2 Delivery O2 Flow Rate FiO2 08/06/19 08:13 142/85 08/06/19 08:13 74 142/85 08/06/19 08:03 74 18 100 Room Air 21 66 18 98 08/06/19 08:00 98.0 88 20 142/85 (104) 100 08/06/19 07:26 66 18 98 Room Air 21 08/06/19 06:27 98.2 08/06/19 04:00 66 08/06/19 04:00 98.2 69 20 137/74 (95) 98 08/06/19 00:00 80 08/06/19 00:00 97.9 72 18 121/61 (81) 99 08/05/19 21:00 Room Air 08/05/19 20:00 69 08/05/19 20:00 98.1 85 18 144/87 (106) 99 08/05/19 19:50 70 18 97 Room Air 21 08/05/19 19:50 97 Room Air 21 08/05/19 16:00 97.9 74 18 113/70 (84) 97 08/05/19 15:36 70 08/05/19 12:00 96.9 65 20 120/63 (82) 98 08/05/19 11:29 68 Intake and Output 08/05/19 08/06/19 19:00 07:00 Intake Total 480 ml Balance 480 ml Intake Oral 480 ml # Voids 3 2 Objective General Appearance: WD/WN, no apparent distress, alert Lines, tubes and drains: peripheral HEENT: normocephalic, atraumatic, anicteric Neck: supple Respiratory/Chest: lungs clear, no respiratory distress, no accessory muscle use Cardiovascular/Chest: normal peripheral pulses, normal rate, regular rhythm Abdomen: normal bowel sounds, non tender, soft Extremities: no calf tenderness, normal capillary refill Neurologic: alert, oriented x 3, responsive, left sided weakness and tremors Musculoskeletal: normal muscle bulk Laboratory Tests 08/06/19 06:05: Sodium Level 140, Potassium Level 4.5, Chloride Level 102, Carbon Dioxide Level 29, Anion Gap 9, Blood Urea Nitrogen 23H, Creatinine 1.4H, Estimat Glomerular Filtration Rate > 60, Glucose Level 107#H, Calcium Level 9.5 Current Medications Medications (Trade) Dose Ordered Sig/Todd Route PRN Reason Start Time Stop Time Status Last Admin Dose Admin Acetaminophen/ Hydrocodone Bitart ([place] 5/325) 1 tab Q6H PRN ORAL For Pain 08/01/19 13:42 08/08/19 13:41 08/06/19 05:54 Albuterol/ Ipratropium (Albuterol/ Ipratropium) 3 ml Q4H PRN HHN Shortness of Breath 08/01/19 15:11 08/06/19 15:10 08/06/19 07:16 Amlodipine Besylate (Norvasc) 10 mg DAILY ORAL 08/04/19 09:00 09/03/19 08:59 08/06/19 08:13 Aspirin (ASA) 81 mg DAILY NG 08/02/19 09:00 09/16/19 08:59 08/06/19 08:13 Atorvastatin Calcium (Lipitor) 20 mg BEDTIME ORAL 08/02/19 21:00 10/31/19 20:59 08/05/19 21:13 Clonidine HCl (Catapres Tab) 0.1 mg Q6H PRN ORAL sbp above 160 08/02/19 11:00 10/31/19 10:59 Dextrose (Dextrose 50%) 25 ml Q30M PRN IV Hypoglycemia 08/01/19 13:42 10/30/19 13:41 Dextrose (Dextrose 50%) 50 ml Q30M PRN IV Hypoglycemia 08/01/19 13:42 10/30/19 13:41 Enoxaparin Sodium (Lovenox) 40 mg DAILY SUBQ 08/02/19 09:00 10/31/19 08:59 08/06/19 08:15 Hydrochlorothiazide (Hydrodiuril) 25 mg DAILY ORAL 08/03/19 14:15 09/02/19 14:14 08/06/19 08:13 Insulin Aspart (NovoLOG) BEFORE MEALS AND HS SUBQ 08/01/19 16:30 10/30/19 16:29 08/05/19 21:16 Insulin Detemir (Levemir) 30 units BEDTIME SUBQ 08/02/19 21:00 10/31/19 20:59 08/05/19 21:15 Irbesartan (Avapro) 150 mg DAILY ORAL 08/04/19 11:14 11/02/19 11:13 08/06/19 08:13 Magnesium Hydroxide (Mom) 30 ml Q6H PRN ORAL Constipation 08/02/19 08:00 09/01/19 07:59 08/06/19 06:01 Assessment/Plan Assessment/Plan ASSESSMENT left side weakness, r/o CVA suspected high-grade dependent stenoses of the left carotid siphon VAZQUEZ vs CKD DM with hyperglycemia substance abuse HTN with HTN urgency COPD Hypercholesteremia ? prior hx of CVA ( no evidence of CY head) Homeless PLAN OF CARE tele -MRI brain no acute IC pathologic Bilateral frontal lobe T2 hyperintensities, most likely on the basis of chronic microvascular ischemic changes. - MRI/MRA neck ->suspect high-grade dependent stenoses of the left carotid siphon. Consider CT angiography to better characterize Possible fusiform aneurysmal dilatation of the proximal right carotid siphon and borderline significant stenosis of the distal right carotid siphon will proceed with CT angio if confirmed high grade stenosis-> vascular surgery eval CTA neck: -Approximately 50% bandlike narrowing of the junction of the distal right intrapetrous carotid artery and proximal carotid siphon -Mild ectasia but no aneurysm of the proximal right carotid siphon. -50% diameter stenosis of the distal right carotid siphon -Nonsignificant stenosis of the right internal carotid origin. -Possibly significant stenosis of the proximal left carotid siphon, findings less striking than seen on recent MR angiograms. -High-grade local stenosis of the mid right vertebral artery -Likely significant stenosis of the proximal right posterior cerebral artery. More questionable stenoses of the left posterior cerebral arteries. -Diffusely small left proximal anterior cerebral artery, likely developmental, with possible one or more focal stenoses -Nonspecific pulmonary mosaic perfusion pattern, could represent COPD changes are pulmonary edema among other possibilities -Carotid Duplex less than 50% stenosis bilaterally Neuro eval appreciated ASA lipid panel with elevated TC and LDL, increase statin dose educated on low fat low cholesterol diet swallow eval- passed, no diff with swallowing PT eval and Rx BS management with SSI, Levemir added by nephro for better control, HgA1c 8.7, diabetic diet and diabetic teaching , encourage compliance aide BP closely BP management with CCB, increase Norvasc dose and HcTz ; restarted on IRA by nephro since K normalized, monitor closely Clonidine prn just added for BP spikes BP stabilized supplemental O2 prn to keep sat above 90% HHN with Duoneb prn DVT prophylaxis monitor renal paramerts, lytes, correct lytes as needed, mild hyper K likely due to IRA, fup with nephro recs: IRA dc, started on Hctz, now restarted on IRA ( K stabilized) avoid nephrotoxics, student loan counselor on abstinence from illicit street drugs discussed with Dr Sales ,[facility] surgeon, 08/03 over the phone who requested neurologist to review CT angio of the neck for further recommendations at this time medical management with a/PLT therapy, statin, BP control awaiting for neuro recs , texted dr Bae for further recommendations , case discussed and evaluated by supervising physician Chris Ward MD 08/07/19 0908: Subjective Allergies: Coded Allergies: TRAMADOL (Verified Adverse Reaction, Severe, vomiting, 09/12/12) Assessment/Plan Assessment/Plan Patient seen and examined. with DIRECTOR OF FINANCIAL PLANNING. Agree with above A&P as it reflects our joint deliberations. Case d/w Dr. Bae. Duplex US carotid arteries ordered by him and if not sig obstruction he can have and outpatient vascular surgery evaluation. We tried extensively to have a vascular surgery evaluation but Dr. Sales unable to see patient unless consulted by neuro. Neurologist feels that vascular surgery evaluation can be done as an outpatient if no e/o high grade stenosis on US. I will not D/C patient until cleared by neuro. I also left a message for the patients outpatient blindstitch machine operator Dr. Singh. Larissa Sy NP Aug 06, 2019 09:53 Chris Ward MD Aug 07, 2019 09:08
[2019-08-06 12:00] VITALS: BP 128/61
--- NOTE | 2019-08-06 13:41 | Nephrology Progress Note ---
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 (4) Left-sided weakness (5) Stroke-like symptoms (6) CKD (chronic kidney disease) stage 3, GFR 30-59 ml/min Plan K 4.7 4.6 4.5 restart irbesartan , add hctz for bp and K Subjective Constitutional: Reports: weakness HEENT: Reports: no symptoms Genitourinary: Reports: no symptoms Neurologic/Psychiatric: Reports: pre-existing deficit Objective Objective Last 24 Hour Vital Signs Date Time Temp Pulse Resp B/P (MAP) Pulse Ox O2 Delivery O2 Flow Rate FiO2 08/06/19 12:00 83 08/06/19 12:00 98.1 71 20 128/61 (83) 98 08/06/19 09:00 Room Air 08/06/19 08:13 142/85 08/06/19 08:13 74 142/85 08/06/19 08:03 74 18 100 Room Air 21 66 18 98 08/06/19 08:00 84 08/06/19 08:00 98.0 88 20 142/85 (104) 100 08/06/19 07:26 66 18 98 Room Air 21 08/06/19 06:27 98.2 08/06/19 04:00 66 08/06/19 04:00 98.2 69 20 137/74 (95) 98 08/06/19 00:00 80 08/06/19 00:00 97.9 72 18 121/61 (81) 99 08/05/19 21:00 Room Air 08/05/19 20:00 69 08/05/19 20:00 98.1 85 18 144/87 (106) 99 08/05/19 19:50 70 18 97 Room Air 21 08/05/19 19:50 97 Room Air 21 08/05/19 16:00 97.9 74 18 113/70 (84) 97 08/05/19 15:36 70 Intake and Output 08/05/19 08/06/19 19:00 07:00 Intake Total 480 ml Balance 480 ml Intake Oral 480 ml # Voids 3 2 Laboratory Tests 08/06/19 06:05: Sodium Level 140, Potassium Level 4.5, Chloride Level 102, Carbon Dioxide Level 29, Anion Gap 9, Blood Urea Nitrogen 23H, Creatinine 1.4H, Estimat Glomerular Filtration Rate > 60, Glucose Level 107#H, Calcium Level 9.5 Height (Feet): 5 Height (Inches): 9.00 Weight (Pounds): 188 General Appearance: no apparent distress EENT: normal ENT inspection Cardiovascular: regular rhythm Respiratory/Chest: lungs clear Abdomen: non tender Extremities: no edema Neurologic: motor weakness Alexander Lynch MD Aug 06, 2019 13:41
[2019-08-06 16:00] VITALS: BP 139/73
[2019-08-06 20:00] VITALS: BP 140/78
[2019-08-06] MEDS: Levemir Flexpen SUBQ SCH (20:26)
[2019-08-06] MEDS: Atorvastatin 20mg tab ORAL SCH (20:26)
[2019-08-07] VITALS: BP 141/76
[2019-08-07 04:00] VITALS: BP 146/86
[2019-08-07] MEDS: NovoLOG Insulin Flexpen SUBQ SCH ×2 (05:16→11:55)
[2019-08-07 08:00] VITALS: BP 142/88
[2019-08-07] MEDS: hydroCHLOROthiazide 25mg cap ORAL SCH (08:30)
[2019-08-07] MEDS: Irbesartan 150mg tablet ORAL SCH (08:31)
[2019-08-07] MEDS: Aspirin Baby 81mg NG SCH (08:32)
[2019-08-07] MEDS: HYDROcodone/Acetamin 5/325 tab ORAL PRN (08:32)
[2019-08-07] MEDS: Enoxaparin 40mg Inj SUBQ SCH (08:33)
--- NOTE | 2019-08-07 09:01 | Progress Note ---
DATE: 08/06/2019 NEUROLOGIC PROGRESS NOTE SUBJECTIVE: Patient recently on 08/03/2019 had his head and neck CT angiogram. The head CT angiogram was poorly visualized. The neck CT angiogram was abnormal, see the report. Brain MRI on 08/02/2019 did not reveal an acute infarct. The patient has neck pain, which is probably not . There are no seizures or blackouts. Still has trouble remembering dates. His walking is slightly impaired . PHYSICAL EXAMINATION: VITAL SIGNS: Pulse is 82, respiration rate is 20, blood pressure 128/61. MENTAL STATUS: He is alert and awake, eating at this time. Date, he still does not know the month or the year. Place, he knows he is in a hospital, but does not know the name of the hospital. he could spell world backwards and forwards. MUSCLE EXAMINATION: Unchanged. He has got a tremor. IMPRESSION: I doubt this patient had a stroke. He likely has significant intracranial arterial stenosis at this time. I will do vascular study of him. He can then probably be discharged after the vascular study. The patient should probably be discharged on aspirin, although he has not had . PLAN: 1. Aspirin 325 mg a day. 2. A duplex scan of the carotid, Doppler of the vertebral arteries. 3. Neurosurgical consult at this time. Deion Bae MD DR: FAVIO JOB#: [id number] CC:
--- NOTE | 2019-08-07 10:09 | Pulmonology Progress Note ---
Larissa Sy [employer] TECHNICIAN 08/07/19 1009: Subjective Allergies: Coded Allergies: TRAMADOL (Verified Adverse Reaction, Severe, vomiting, 09/12/12) Subjective MRA /MRI neck suggestive of high-grade dependent stenoses of the left carotid siphon. remains afebrile, no signs of resp distress CTA neck reviewed denies CP, SOB, no new weakness no CP, no SOB seen this am by neurologist Objective Last 24 Hour Vital Signs Date Time Temp Pulse Resp B/P (MAP) Pulse Ox O2 Delivery O2 Flow Rate FiO2 08/07/19 09:00 Room Air 08/07/19 08:32 83 142/88 08/07/19 08:31 142/88 08/07/19 08:00 97.4 89 20 142/88 (106) 97 08/07/19 08:00 89 08/07/19 07:00 80 18 97 Room Air 21 08/07/19 04:00 96.4 72 18 146/86 (106) 97 08/07/19 04:00 66 08/07/19 00:00 70 08/07/19 00:00 97.2 76 18 141/76 (97) 98 08/06/19 21:00 Room Air 08/06/19 20:00 98.1 68 18 140/78 (98) 98 08/06/19 20:00 72 08/06/19 16:00 98.1 74 20 139/73 (95) 99 08/06/19 16:00 76 08/06/19 12:00 83 08/06/19 12:00 98.1 71 20 128/61 (83) 98 Intake and Output 08/06/19 08/07/19 19:00 07:00 # Voids 6 2 Objective General Appearance: WD/WN, no apparent distress, alert Lines, tubes and drains: peripheral HEENT: normocephalic, atraumatic, anicteric Neck: supple Respiratory/Chest: lungs clear, no respiratory distress, no accessory muscle use Cardiovascular/Chest: normal peripheral pulses, normal rate, regular rhythm Abdomen: normal bowel sounds, non tender, soft Extremities: no calf tenderness, normal capillary refill Neurologic: alert, oriented x 3, responsive, left sided weakness and tremors Musculoskeletal: normal muscle bulk Current Medications Medications (Trade) Dose Ordered Sig/Todd Route PRN Reason Start Time Stop Time Status Last Admin Dose Admin Acetaminophen/ Hydrocodone Bitart ([place] 5/325) 1 tab Q6H PRN ORAL For Pain 08/01/19 13:42 08/08/19 13:41 08/07/19 08:32 Amlodipine Besylate (Norvasc) 10 mg DAILY ORAL 08/04/19 09:00 09/03/19 08:59 08/07/19 08:32 Aspirin (ASA) 81 mg DAILY NG 08/02/19 09:00 09/16/19 08:59 08/07/19 08:32 Atorvastatin Calcium (Lipitor) 20 mg BEDTIME ORAL 08/02/19 21:00 10/31/19 20:59 08/06/19 20:26 Clonidine HCl (Catapres Tab) 0.1 mg Q6H PRN ORAL sbp above 160 08/02/19 11:00 10/31/19 10:59 Dextrose (Dextrose 50%) 25 ml Q30M PRN IV Hypoglycemia 08/01/19 13:42 10/30/19 13:41 Dextrose (Dextrose 50%) 50 ml Q30M PRN IV Hypoglycemia 08/01/19 13:42 10/30/19 13:41 Enoxaparin Sodium (Lovenox) 40 mg DAILY SUBQ 08/02/19 09:00 10/31/19 08:59 08/07/19 08:33 Hydrochlorothiazide (Hydrodiuril) 25 mg DAILY ORAL 08/03/19 14:15 09/02/19 14:14 08/07/19 08:30 Insulin Aspart (NovoLOG) BEFORE MEALS AND HS SUBQ 08/01/19 16:30 10/30/19 16:29 08/06/19 16:54 Insulin Detemir (Levemir) 30 units BEDTIME SUBQ 08/02/19 21:00 10/31/19 20:59 08/05/19 21:15 Irbesartan (Avapro) 150 mg DAILY ORAL 08/04/19 11:14 11/02/19 11:13 08/07/19 08:31 Magnesium Hydroxide (Mom) 30 ml Q6H PRN ORAL Constipation 08/02/19 08:00 09/01/19 07:59 08/06/19 17:17 Sodium Chloride 1,000 ml @ 125 mls/hr Q8H IV 08/07/19 06:45 09/06/19 06:44 08/07/19 06:56 Assessment/Plan Assessment/Plan ASSESSMENT left side weakness, r/o CVA suspected high-grade dependent stenoses of the left carotid siphon VAZQUEZ vs CKD DM with hyperglycemia substance abuse HTN with HTN urgency COPD Hypercholesteremia ? prior hx of CVA ( no evidence of CY head) Homeless PLAN OF CARE tele -MRI brain no acute IC pathologic Bilateral frontal lobe T2 hyperintensities, most likely on the basis of chronic microvascular ischemic changes. - MRI/MRA neck ->suspect high-grade dependent stenoses of the left carotid siphon. Consider CT angiography to better characterize Possible fusiform aneurysmal dilatation of the proximal right carotid siphon and borderline significant stenosis of the distal right carotid siphon will proceed with CT angio if confirmed high grade stenosis-> vascular surgery eval CTA neck: -Approximately 50% bandlike narrowing of the junction of the distal right intrapetrous carotid artery and proximal carotid siphon -Mild ectasia but no aneurysm of the proximal right carotid siphon. -50% diameter stenosis of the distal right carotid siphon -Nonsignificant stenosis of the right internal carotid origin. -Possibly significant stenosis of the proximal left carotid siphon, findings less striking than seen on recent MR angiograms. -High-grade local stenosis of the mid right vertebral artery -Likely significant stenosis of the proximal right posterior cerebral artery. More questionable stenoses of the left posterior cerebral arteries. -Diffusely small left proximal anterior cerebral artery, likely developmental, with possible one or more focal stenoses -Nonspecific pulmonary mosaic perfusion pattern, could represent COPD changes are pulmonary edema among other possibilities -Carotid Duplex less than 50% stenosis bilaterally Neuro eval appreciated ASA 325 mg lipid panel with elevated TC and LDL, increase statin dose educated on low fat low cholesterol diet swallow eval- passed, no diff with swallowing PT eval and Rx BS management with SSI, Levemir added by nephro for better control, HgA1c 8.7, diabetic diet and diabetic teaching , encourage compliance engineer BP closely BP management with CCB, increase Norvasc dose and HcTz ; restarted on IRA by nephro since K normalized, monitor closely Clonidine prn just added for BP spikes BP stabilized supplemental O2 prn to keep sat above 90% HHN with Duoneb prn DVT prophylaxis monitor renal paramerts, lytes, correct lytes as needed, mild hyper K likely due to IRA, fup with nephro recs: IRA dc, started on Hctz, now restarted on IRA ( K stabilized) avoid nephrotoxics, addiction counselor on abstinence from illicit street drugs discussed with Dr Sales ,[facility] surgeon, 08/03 over the phone who requested neurologist to review CT angio of the neck for further recommendations at this time medical management with a/PLT therapy, statin, BP control awaiting for neuro recs , texted dr Bae for further recommendations , seen this am by Dr Bae, repeat Carotid Duplex, done, no change can be dc today, patient will have copies of all imaging done here, and need to fup with his primary care provided in 1 weel meds will be filled trough across the [facility] pharmacy POC discussed with patient and CN and patient case discussed and evaluated by supervising physician Chris Ward MD 08/07/19 1704: Subjective Allergies: Coded Allergies: TRAMADOL (Verified Adverse Reaction, Severe, vomiting, 09/12/12) Assessment/Plan Assessment/Plan Duplex noted, d/w Dr. Bae, stable for D/C Patient seen and examined with [employer] TECHNICIAN. Agree with above A&P as it reflects our joint deliberations. Larissa Sy NP Aug 07, 2019 10:09 Chris Ward MD Aug 07, 2019 17:04
[2019-08-07] MEDS ORDERED: DIURIL25 MG ORAL (10:16)
[2019-08-07] MEDS ORDERED: ASPIRIN EC325 MG ORAL (10:16)
[2019-08-07] MEDS ORDERED: LIPITOR20 MG ORAL (10:16)
[2019-08-07] MEDS ORDERED: LEVEMIR FL100 UNIT/1 SUBQ (10:16)
[2019-08-07] MEDS ORDERED: NORVASC10 MG ORAL (10:16)
[2019-08-07] MEDS ORDERED: AVAPRO150 MG ORAL (10:16)
--- NOTE | 2019-08-07 11:25 | Diagnostic Imaging Report ---
EXAM: ULTRASOUND Carotid-Vert Duplex Scan-BILAT CLINICAL HISTORY: Left-sided weakness. COMPARISON: Carotid duplex 08/01/2019. CTA neck 08/03/2019 FINDINGS: Bilateral plaque formation noted. No significant stenosis by grayscale. Velocities are as follow: Right: CCA= 62 cm/sec ICA = 57 cm/sec ECA = 89 cm/sec Left: CCA = 75 cm/sec ICA= 71 cm/sec ECA = 67 cm/sec ICA/CCA ratio are 0.9 on the right and 1.2 on the left. There is limited visualization of the vertebral arteries. There appears to be antegrade flow and measure velocities are in the normal range. The reported stenosis in the mid right vertebral artery noted on CT angiogram cannot be demonstrated by Doppler. IMPRESSION: NO HEMODYNAMICALLY SIGNIFICANT STENOSIS OF THE CAROTIDS. ONLY MARGINAL VISUALIZATION OF THE VERTEBRAL ARTERIES WHICH APPEARS TO SHOW ANTEGRADE FLOW. THE REPORTED STENOSIS IN THE MID RIGHT VERTEBRAL ARTERY SEEN ON CT ANGIOGRAM CANNOT BE DEMONSTRATED BY ULTRASOUND. Degree of stenosis is derived from SRU criteria.
--- NOTE | 2019-08-07 11:42 | Nephrology Progress Note ---
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 (4) Left-sided weakness (5) Stroke-like symptoms (6) CKD (chronic kidney disease) stage 3, GFR 30-59 ml/min Plan K 4.7 4.6 4.5 restart irbesartan , add hctz for bp and K, possible angio per dr bass so iv fluid ordered Subjective Constitutional: Reports: weakness HEENT: Reports: no symptoms Genitourinary: Reports: no symptoms Neurologic/Psychiatric: Reports: no symptoms, pre-existing deficit Objective Objective Last 24 Hour Vital Signs Date Time Temp Pulse Resp B/P (MAP) Pulse Ox O2 Delivery O2 Flow Rate FiO2 08/07/19 09:00 Room Air 08/07/19 08:32 83 142/88 08/07/19 08:31 142/88 08/07/19 08:00 97.4 89 20 142/88 (106) 97 08/07/19 08:00 89 08/07/19 07:00 80 18 97 Room Air 21 08/07/19 04:00 96.4 72 18 146/86 (106) 97 08/07/19 04:00 66 08/07/19 00:00 70 08/07/19 00:00 97.2 76 18 141/76 (97) 98 08/06/19 21:00 Room Air 08/06/19 20:00 98.1 68 18 140/78 (98) 98 08/06/19 20:00 72 08/06/19 16:00 98.1 74 20 139/73 (95) 99 08/06/19 16:00 76 08/06/19 12:00 83 08/06/19 12:00 98.1 71 20 128/61 (83) 98 Intake and Output 08/06/19 08/07/19 19:00 07:00 # Voids 6 2 Height (Feet): 5 Height (Inches): 9.00 Weight (Pounds): 188 General Appearance: no apparent distress, alert EENT: normal ENT inspection Neck: normal alignment Cardiovascular: regular rhythm Respiratory/Chest: lungs clear Abdomen: soft Extremities: no edema Alexander Lynch MD Aug 07, 2019 11:42
[2019-08-07 12:00] VITALS: BP 112/69
--- NOTE | 2019-08-09 13:17 | Discharge Summary ---
Discharge Summary Discharge Summary _ DATE OF ADMISSION: 08/01/2019 DATE OF DISCHARGE: 08/07/2019 DISCHARGED BY: Dr. Wrad REASON FOR ADMISSION: 65 years old male with past medical history of hypertension, hypercholesterolemia, COPD, diabetes mellitus, history of CVA, presented with left-sided weakness for the last 2 to 3 days. Patient reported left upper and lower extremity weakness and difficulty with ambulation. Patient at baseline ambulates with cane. No chest pain, no shortness of breath. He denies fever or chills. He denied cough,, congestion respiratory distress. No nausea or vomiting. Upon evaluation in emergency room CT of the head revealed no acute intracranial hemorrhage or edema , no mass-effect. Chest x-ray demonstrated no acute cardiopulmonary pathology. Laboratory work-up revealed no leukocytosis ,stable hemoglobin ,hematocrit. BUN 30, creatinine 1.6. Troponin negative. EKG revealed sinus rhythm , no acute ischemic changes. Urine toxicology screen was positive for phencyclidine and marijuana. In emergency department patient received aspirin , Narcan and admitted for further management. CONSULTANTS: neurologist Dr Bae director of capital giving Dr. Lynch HOSPITAL COURSE: Patient admitted to telemetry floor. Neurologist and director of capital giving followed. - MRI of the brain was negative for acute intracranial bleed or mass effect or infarct Bilateral frontal lobe T2 hyperintensities, most likely on the basis of chronic microvascular ischemic changes. -MRI of the head / MRA of the neck revealed suspected high-grade dependent stenoses of the left carotid siphon. Consider CT angiography to better characterize Possible fusiform aneurysmal dilatation of the proximal right carotid siphon and borderline significant stenosis of the distal right carotid siphon Possible significant narrowing of the distal right A1 segment. The distal left A1 segment narrowing is probably developmental. -CT angiogram of the neck showed approximately 50% bandlike narrowing of the junction of the distal right intrapetrous carotid artery and proximal carotid siphon. Mild ectasia but no aneurysm of the proximal right carotid siphon. 50% diameter stenosis of the distal right carotid siphon. Nonsignificant stenosis of the right internal carotid origin. Possibly significant stenosis of the proximal left carotid siphon, findings less striking than seen on recent MR angiograms. High-grade local stenosis of the mid right vertebral artery Likely significant stenosis of the proximal right posterior cerebral artery. More questionable stenoses of the left posterior cerebral arteries. Diffusely small left proximal anterior cerebral artery, likely developmental, with possible one or more focal stenoses -Carotid duplex revealed less than 50% stenosis bilaterally. Patient started on aspirin 325 mg as per neurology recommendation. Lipid panel revealed elevated total cholesterol and LDL. Statin dose was increased. Patient was educated on low-fat low-cholesterol diet. Patient passed swallow evaluation. Patient was working with physical therapist. Fall precaution maintained. Patient noted initially to have episodes of hypertensive urgency. Blood pressure was managed with calcium channel karishma. Norvasc dose was increased. Hydrochlorothiazide added to existing regimen. Initially IRA inhibitor was stopped due to elevated potassium. After potassium stabilized, IRA inhibitor was restarted as per director of capital giving. Potassium level was closely monitored. Clonidine was on board as well as needed for blood pressure spikes. Blood pressure stabilized and prior to discharge 112/69. Blood sugar was managed with sliding scale of insulin. Levemir was added for better blood sugar control, since patient demonstrated hyperglycemia. Hemoglobin A1c 8.7. Patient provided with diabetic diet and diabetic teaching. Patient was encouraged compliance with both medication and diet as outpatient. Supplemental oxygen was on board as needed to keep pulse oximetry above 90%. Nebulizing treatment with DuoNeb provided. DVT prophylaxis provided. Renal parameters and electrolytes were closely monitored , electrolytes corrected as needed . Mild hyperkalemia was most likely due to IRA ( IRA was discontinued and then restarted. Nephrotoxic's were avoided. Patient was counseled on abstinence from illicit street drugs. Results of the CT angiogram were discussed with vascular surgeon Dr. Sales, who recommended neurologist to review CT angiogram of the neck for further recommendation. Medical management continued with antiplatelet therapy, statin, and blood pressure control. Neurologist reviewed CT angiogram and recommended neurosurgery consult at sometime soon. He cleared patient for discharge. Per neurologist patient probably has significant intracranial arterial stenosis. Carotid duplex was repeated , as per neurologist recommendation , and revealed no hemodynamically significant stenosis of the carotid. Unfortunately no neurosurgery evaluation is available at this facility. All imaging reports were copied and provided to patient. Patient will follow up with his primary care provider in 1 week with copies of all imaging and request for neurosurgery evaluation as outpatient. New prescription provided to patient. Patient was stable for discharge. FINAL DIAGNOSES: Left-sided weakness - CVA was ruled out Stroke like symptoms Suspected high-grade dependent stenosis of the left carotid siphon Probably significant intracranial arterial stenosis Hypertensive nephrosclerosis Hyperkalemia Acute kidney injury Chronic kidney disease stage III Diabetes mellitus with hyperglycemia Hypertension with hypertensive urgency Substance abuse: PCP, marijuana COPD Hypercholesterolemia Prior history of CVA DISCHARGE MEDICATIONS: See Medication Reconciliation list. DISCHARGE INSTRUCTIONS: Patient was discharged home. Follow-up with a primary care provider in 1 week. Larissa Sy NP Aug 09, 2019 13:17
== END 2019-08-07 16:29 | disposition home or self-care (01) | DRG 46 ==
LOC: EMR 07:46 → 2E 08:25 → EDBEDREQ 09:42 → 2E 08-06 10:18
DX: I65.22 Occlusion and stenosis of left carotid artery (principal); I66.9 Occlusion and stenosis of unspecified cerebral artery; G81.94 Hemiplegia, unspecified affecting left nondominant side; I12.9 Hypertensive chronic kidney disease with stage 1 through stage 4 chronic kidney disease, or unspecified chronic kidney disease; G93.41 Metabolic encephalopathy; N17.9 Acute kidney failure, unspecified; E87.8 Other disorders of electrolyte and fluid balance, not elsewhere classified; J44.9 Chronic obstructive pulmonary disease, unspecified; I16.0 Hypertensive urgency; E10.65 Type 1 diabetes mellitus with hyperglycemia; E10.22 Type 1 diabetes mellitus with diabetic chronic kidney disease; Z88.6 Allergy status to analgesic agent; H40.9 Unspecified glaucoma; E78.00 Pure hypercholesterolemia, unspecified; F19.10 Other psychoactive substance abuse, uncomplicated; N18.3 Chronic kidney disease, stage 3 (moderate); E87.5 Hyperkalemia; F16.10 Hallucinogen abuse, uncomplicated; F12.10 Cannabis abuse, uncomplicated; Z86.73 Personal history of transient ischemic attack (TIA), and cerebral infarction without residual deficits; Z79.4 Long term (current) use of insulin
CPT/HCPCS: 36415; 70450; 70498; 70544; 70548; 70551; 71045; 80048; 80053; 80061; 80307; 81001; 82043; 82140; 82550; 82607; 82962; 83036; 83921; 84443; 84484; 84550; 85007; 85025; 85610; 85651; 85730; 86140; 86592; 86780; 93005; 93880; 94640; 94664; 96374; 99285; A9585; J1815; J2310; J7620; S5561